=== PATIENT | female | born 1960 | race Caucasian/White ===

== ENCOUNTER → 2016-08-06 | Outpatient (CLI) | payer OTHER, MEDICAID ==
[2016-06-04 19:52] VITALS: BP 114/61
--- NOTE | 2016-08-07 12:06 | MG ---
HISTORY: SCREENING Comparison: Multiple priors dating back to November 10, 2007 FINDINGS: Bilateral CC and MLO projections of the right and left breast were obtained. Heterogeneously dense fibroglandular tissue is seen to be present without significant interval change. No suspicious arch itectural distortion, mass or clustered microcalcifications can be observed to suggest malignancy. No skin thickening or nipple retraction is appreciated. No pathological lymphadenopathy can be rui ntified. Benign-appearing calcifications are noted within the right and left breast. IMPRESSION: NO RADIOGRAPHIC EVIDENCE OF MALIGNANCY. ACR CATEGORY 2 - benign findings. FOLLOW-UP EXAM 1 YEAR. Diagnostic CAD was utilized and reviewed. * 0 (ZERO) - ASSESSMENT INCOMPLETE; ADDITIONAL IMAGING IS NEEDED. * 1/ (ONE) - NEGATIVE. * 2/II (TWO) - BENIGN FINDINGS. * 3/III (THREE) - PROBABLY BENIGN FINDING; SHORT INTERVAL FOLLOW-UP SUGGESTED. * 4/IV (FOUR) - SUSPICIOUS ABNORMALITY; BIOPSY SHOULD BE CONSIDERED. * 5/V (FIVE) - HIGHLY SUSPICIOUS OF MALIGNANCY; BIOPSY SHOULD BE PERFORMED. A NEGATIVE X-RAY REPORT SHOULD NOT DELAY BIOPSY IF A DOMINANT OR CLINICALLY SUSPICIOUS MASS IS PRESENT; 4 TO 8 PERCENT OF CANCERS ARE NOT IDENTIFIED BY X-RAY. A NEG ATIVE REPORT MAY REINFORCE THE CLINICAL IMPRESSION. ADENOSIS AND DENSE BREASTS MAY OBSCURE AN UNDER LYING NEOPLASM. Reported By:
== END ==
LOC: RAD 13:52
PROVIDERS: ATTEND Specialist
DX: Z12.31 Encounter for screening mammogram for malignant neoplasm of breast (principal)
CPT/HCPCS: 77067

== ENCOUNTER 2017-01-14 18:13 | Emergency (ER) | payer OTHER, MEDICAID ==
[2017-01-14 18:22] VITALS: BP 126/61; BMI 30.7
[2017-01-14] MEDS ORDERED: TORADOL 60 MG VIAL IM ONE (20:09)
--- NOTE | 2017-01-14 20:10 | DR.GENAD ---
HPI - PCP Primary Care Physician: SHAYNA ARMSTRONG - Complaint/Symptoms Chief Complaint Doctors Comments: There has been no n/v. Denies headache Chief Complaint:: PT HAD FALL AT HOME AND HURT BOTH FEET AND HIT HEAD ON BED. C /O KNOT ON HEAD - Source History Provided: Family Member - Mode of Arrival Mode of Arrival: Wheelchair - Timing Onset of Chief Complaint: 01/14/17 PMH - PMH Past Medical History: Yes Past Medical History: Depression, Hyperthyroidism Past Surgical History: Yes Surgical History: Cholecystectomy - Family History History of Family Medical Conditions: Yes Family Medical History: Cancer, Coronary Artery Disease, Heart Failure, Hypertension - Social History Does patient currently use any type of tobacco product: No Have you used tobacco products in the last 12 months: No Type of Tobacco Use: None Does any household member use tobacco: No Alcohol Use: None Do you use any recreational Drugs:: No Lives With: Family Lives Where: Home - infectious screening In the last 2 months have you had wt loss of >10#?: NO Have you had fever, night sweats or hemotysis?: No Have you traveled outside the country in the last 6 months?: No Isolation: Standard ROS - Review of Systems Eyes: No Symptoms Reported ENTM: No Symptoms Reported Respiratoy: No Symptoms Reported Cardiovascular: No Symptoms Reported Gastrointestinal/Abdominal: No Symptoms Reported Genitourinary: No Symptoms Reported Neurological: No Symptoms Reported Musculoskeletal: No Symptoms Reported Integumentary: See HPI, Lesions (abrasion on scalp,, right and left feet) Hematologic/Lymphatic: No Symptoms Reported Endocrine: No Symptoms Reported Psychiatric: No Symptoms Reported All Other Systems: Reviewed and Negative PE - Vital Signs Vitals: Temperature 98.3 F Pulse Rate 75 Respiratory Rate 20 Blood Pressure 126/61 O2 Sat by Pulse Oximetry 98 - General Limitations: No Limitations General Appearance: Alert, In No Apparent Distress - Head Head Exam: Normal Inspection, Other (left accipital pariatal area abrasion) - Eyes Eye exam: Normal Appearance, PERRL, EOMI - ENT ENT Exam: Normal Exam External Ear Exam: Normal External Inspection TM/Canal Exam: Bilateral Normal Nose Exam: Normal Nose Exam Mouth Exam: Normal Inspection Throat Exam: Normal Inspection - Neck Neck Exam: Normal Inspection - Chest Chest Inspection: Normal Inspection - Respiratory Respiratory Exam: Normal Lung Sounds Bilat Respiratory Exam: Bilateral Clear to Auscultation - Cardiovascular Cardiovascular Exam: Regular Rate, Normal Rhythm - Abdominal Exam Abdominal Exam: Normal Inspection Abdominal Tenderness: negative: RUQ, RLQ, LUQ, LLQ, Epigastrium, Suprapubic, Diffuse, Mild, Moderate, Severe, Other - Extremities Extremities Exam: Full ROM, Edema (bilateral ankles) - Back Back Exam: Normal Inspection - Neurologic Neurological Exam: Alert, Oriented X3, CN II-XII Intact - Psychiatric Psychiatric Exam: Normal Affect, Normal Mood - Skin Skin Exam: Warm, Dry, Intact (abrasion right foot, and scalp) ROR - XRAY XRAY Interpreted by: Radiologist (Ankle:No acute abnormality, foot: no acute abnormality; Skull: negative) - Diagnosis Discharge Problem: Hematoma and contusion Contusion, foot Qualifiers: Encounter type: initial encounter Laterality: right Qualified Code(s): S90.31XA - Contusion of right foot, initial encounter Contusion of right ankle Qualifiers: Encounter type: initial encounter Qualified Code(s): S90.01XA - Contusion of right ankle, initial encounter - Discharge Plan Condition: Stable - Follow ups/Referrals Follow ups/Referrals: SHAYNA ARMSTRONG [Primary Care Provider] - 3 days - Instructions
[2017-01-14] MEDS ORDERED: TORADOL 60 MG VIAL ONE ×2 (20:32→21:02)
--- NOTE | 2017-01-14 20:50 | RAD ---
HISTORY: Pain and edema post fall Study: Three views right foot Comparison: 06/10/2015 Findings: Normal alignment. No acute fracture or dislocation. The soft tissues are unremarkable. IMPRESSION: 1. No acute osseous abnormality. Reported By:
--- NOTE | 2017-01-14 20:51 | RAD ---
HISTORY: Pain and edema after fall Study: Three views left ankle Comparison: None Findings: Normal alignment. No acute fracture or dislocation. The soft tissues are unremarkable. IMPRESSION: 1. No acute osseous abnormality. Reported By:
--- NOTE | 2017-01-14 20:54 | RAD ---
HISTORY: Fall, closed head injury, hematoma Study: Three views of the skull Comparison: None Findings: The calvarium appears intact. No depressed or displaced fracture is identified. The soft tissues are unremarkable. Paranasal sinuses appear clear. IMPRESSION: 1. Negative skull radiographs. Reported By:
== END 2017-01-14 21:37 | disposition home or self-care (01) ==
LOC: ER 18:26
DX: S90.31XA Contusion of right foot, initial encounter (principal); S90.01XA Contusion of right ankle, initial encounter; W01.198A Fall on same level from slipping, tripping and stumbling with subsequent striking against other object, initial encounter; Y92.009 Unspecified place in unspecified non-institutional (private) residence as the place of occurrence of the external cause
CPT/HCPCS: 70260; 73610; 73630; 96372; 99283; J1885

== ENCOUNTER 2017-08-08 14:33 | Observation (INO) | payer OTHER, MEDICAID ==
[2017-08-08 18:26] VITALS: BMI 30.9
[2017-08-08] MEDS: NS 1000 ML 1,000 ML IV SCH (18:27)
--- NOTE | 2017-08-08 18:31 | RAD ---
HISTORY: Abdominal Pain Study: Frontal view of the chest, flat and upright views of the abdomen Comparison: None. Findings: Cardiomediastinal silhouette is normal in size. No focal consolidations, pleural effusions or pneumot horax. Osseous structures are without acute abnormality. Flat and upright views of the abdomen demonstrates a normal bowel gas pattern. No free air. No abnor mal calcifications or abnormal soft tissue shadows. No acute bony abnormalities. IMPRESSION: 1. No acute cardiopulmonary disease. 2. No evidence for acute abdominal pathology. Reported By:
[2017-08-08 18:41] LABS: BASOPHILS # (AUTO) 0.1 X10^3/uL (0.0-0.1); BASOPHILS % (AUTO) 1.1 % (0.2-1.0); EOSINOPHILS # (AUTO) 0.1 x10^3/uL (0.0-0.2); EOSINOPHILS % (AUTO) 1.6 % (0.9-2.9); HEMATOCRIT 38.9 % (36.0-47.0); HEMOGLOBIN 13.5 g/dL (12.0-16.0); LYMPHOCYTES # (AUTO) 1.8 X10^3/uL (1.3-2.9); LYMPHOCYTES % (AUTO) 28.8 % (21.0-51.0); MEAN CORPUSCULAR HGB CONC 34.6 g/dL (33.0-35.0); MEAN CORPUSCULAR VOLUME 86.5 fL (80.0-100.0); MEAN PLATELET VOLUME 7.4 fL (7.4-11.0); MONOCYTES # (AUTO) 0.6 x10^3/uL (0.3-0.8); MONOCYTES % (AUTO) 9.7 % (0.0-13.0); NEUTROPHILS # (AUTO) 3.7 x10^3/uL (2.2-4.8); NEUTROPHILS % (AUTO) 58.8 % (42.0-75.0); PLATELET COUNT 269 X10^3/uL (150.0-450.0); RED CELL DISTRIBUTION WIDTH 13.2 % (11.6-16.5); WHITE BLOOD COUNT 6.3 X10^3/uL (3.6-10.0)
[2017-08-08 18:51] LABS: ALANINE AMINOTRANSFERASE 23 Units/L (12-78); ALBUMIN 4.1 g/dL (3.4-5.0); ALKALINE PHOSPHATASE 78 Units/L (46-116); ASPARTATE AMINO TRANSFERASE 17 Units/L (15-37); BLOOD UREA NITROGEN 10 mg/dL (7-18); CHLORIDE 104 mmol/L (98-107); CREATININE 0.87 mg/dL (0.55-1.02); SODIUM 140 mmol/L (136-145); TOTAL PROTEIN 7.6 g/dL (6.4-8.2); eGFR BLACK RACES > 60 (>60); eGFR NON BLACK RACES > 60 (>60)
[2017-08-08 18:55] LABS: CALCIUM 9.4 mg/dL (8.5-10.1)
[2017-08-08] MEDS: COLACE CAP 100 MG PO SCH (19:34)
[2017-08-08] MEDS: MILK OF MAGNESIA PO SCH ×2 (19:34→21:33)
[2017-08-08] MEDS: MIRALAX POWDER (1 DOSE 17GM) PO SCH (19:34)
[2017-08-09] MEDS: TYLENOL 325 MG TAB PO PRN ×2 (01:37→09:13)
[2017-08-09] MEDS: NS 1000 ML 1,000 ML IV SCH ×3 (02:53→21:45)
[2017-08-09 06:43] LABS: BASOPHILS % (AUTO) 0.7 % (0.2-1.0); EOSINOPHILS # (AUTO) 0.1 x10^3/uL (0.0-0.2); EOSINOPHILS % (AUTO) 1.9 % (0.9-2.9); HEMATOCRIT 35.4 % (36.0-47.0); HEMOGLOBIN 12.3 g/dL (12.0-16.0); LYMPHOCYTES # (AUTO) 2.2 X10^3/uL (1.3-2.9); LYMPHOCYTES % (AUTO) 36.3 % (21.0-51.0); MEAN CORPUSCULAR HEMOGLOBIN 30.1 pg (27.0-34.0); MEAN CORPUSCULAR HGB CONC 34.7 g/dL (33.0-35.0); MEAN CORPUSCULAR VOLUME 86.6 fL (80.0-100.0); MONOCYTES # (AUTO) 0.6 x10^3/uL (0.3-0.8); MONOCYTES % (AUTO) 10.6 % (0.0-13.0); NEUTROPHILS # (AUTO) 3.1 x10^3/uL (2.2-4.8); NEUTROPHILS % (AUTO) 50.5 % (42.0-75.0); PLATELET COUNT 234 X10^3/uL (150.0-450.0); RED BLOOD COUNT 4.08 X10^6/uL (3.5-5.4); RED CELL DISTRIBUTION WIDTH 13.4 % (11.6-16.5); WHITE BLOOD COUNT 6.1 X10^3/uL (3.6-10.0)
[2017-08-09 07:07] LABS: ALANINE AMINOTRANSFERASE 21 Units/L (12-78); ALBUMIN 3.3 g/dL (3.4-5.0); ALKALINE PHOSPHATASE 71 Units/L (46-116); ASPARTATE AMINO TRANSFERASE 15 Units/L (15-37); BLOOD UREA NITROGEN 11 mg/dL (7-18); CALCIUM 8.1 mg/dL (8.5-10.1); CARBON DIOXIDE 24.8 mmol/L (21-32); CHLORIDE 108 mmol/L (98-107); COR CA(FOR HYPOALB) 8.7 mg/dL (8.5-10.1); CREATININE 0.79 mg/dL (0.55-1.02); SODIUM 143 mmol/L (136-145); TOTAL PROTEIN 6.3 g/dL (6.4-8.2); eGFR BLACK RACES > 60 (>60); eGFR NON BLACK RACES > 60 (>60)
[2017-08-09] MEDS: MILK OF MAGNESIA PO SCH ×3 (09:11→18:03)
[2017-08-09] MEDS: MIRALAX POWDER (1 DOSE 17GM) PO SCH (09:13)
[2017-08-09] MEDS: COLACE CAP 100 MG PO SCH (09:13)
[2017-08-09] MEDS: NexIUM PO SCH (12:30)
[2017-08-09] MEDS: PROVERA PO SCH (12:30)
[2017-08-09] MEDS: ESTRACE PO SCH (12:30)
[2017-08-09] MEDS ORDERED: SYNTHROID 25 mcg TAB PO SCH (16:30)
--- NOTE | 2017-08-09 17:49 | DR.UPDATE ---
H&P Update History and Physical Update: WAS SEEN IN THE OFFICE ON 08/08/2017. A H&P WAS COMPLETED PRIOR TO ADMISSION. PATIENT HAS BEEN SEEN AND EXAMINED WITH NO CHANGES NOTED TO H&P. . Changes noted: NO Yes with the following:
[2017-08-09] MEDS ORDERED: BUTT CREAM (COMPOUND) TOP PRN (18:18)
--- NOTE | 2017-08-09 20:53 | PCM.PROG ---
Progress Note - Progress Note for Day of Date: 08/09/17 - Subjective Subjective: IS BEING TREATED FOR FECAL IMPACTION. TODAY, SHE IS ALERT AND ORIENTED, LYING IN BED ON MORNING ROUNDS. SHE CONTINUES WITH ABDOMINAL DISTENTION AND DIFFUSE TENDERNESS. HER VITALS THIS MORNING ARE 97.9-67-20-95%- 121/63. SHE REMAINS HEMODYNAMICALLY STABLE TODAY. ABDOMINAL XRAY REVEALS NO EVIDENCE FOR ACUTE ABDOMINAL PATHOLOGY. SHE IS CURRENTLY RECEIVING MILK OF MAGNESIA, MIRALAX, AND COLACE. SHE REPORTS SEVERAL BOWEL MOVEMENTS THROUGHOUT THE NIGHT. WE WILL CONTINUE WITH CURRENT PLAN OF CARE TODAY. WE PLAN FOR DISCHARGE TOMORROW IF PATIENT REMAINS STABLE. - Past Medical Family Social History Past Med/Fam/Surg Hx: No changes since H&P Allergies: Allergies codeine Allergy (Verified 08/08/17 18:52) - Review of Systems ROS: No change since H&P - Vital Signs and I&O's Vital Signs: Temperature 98.1 F Pulse Rate [Right Brachial] 77 Respiratory Rate 18 Blood Pressure [Right Arm] 125/65 Blood Pressure 126/61 O2 Sat by Pulse Oximetry 97 Intake and Output: Intake & Output 08/07/17 08/08/17 08/09/17 08/10/17 11:59 11:59 11:59 11:59 Intake Total 1980 720 Balance 1980 720 - Physical Exam Oriented: Normal Eyes: Normal Ear: Normal Nose: Normal Throat: Normal Respiratory: Normal Cardiovascular: Normal : Normal Auscultation: Bowel Sounds: Normal Palpation: Normal Tenderness: Diffuse, Moderate. negative: Rebound, Guarding, Rigidity Skin: Normal Musculoskeletal: Normal Psychiatric: Normal Mood Description: Calm Affect: Normal Speech Pattern: Clear, Appropriate - Laboratory and Diagnostics Result Diagrams: 08/09/17 05:14 08/09/17 05:14 Labs: Laboratory WBC 6.1 X10^3/uL (3.6-10.0) 08/09/17 05:14 RBC 4.08 X10^6/uL (3.5-5.4) 08/09/17 05:14 Hgb 12.3 g/dL (12.0-16.0) 08/09/17 05:14 Hct 35.4 % (36.0-47.0) L 08/09/17 05:14 MCV 86.6 fL (80.0-100.0) 08/09/17 05:14 MCH 30.1 pg (27.0-34.0) 08/09/17 05:14 MCHC 34.7 g/dL (33.0-35.0) 08/09/17 05:14 RDW 13.4 % (11.6-16.5) 08/09/17 05:14 Plt Count 234 X10^3/uL (150.0-450.0) 08/09/17 05:14 MPV 8.0 fL (7.4-11.0) 08/09/17 05:14 Neut % (Auto) 50.5 % (42.0-75.0) 08/09/17 05:14 Lymph % (Auto) 36.3 % (21.0-51.0) 08/09/17 05:14 [place] % (Auto) 10.6 % (0.0-13.0) 08/09/17 05:14 Eos % (Auto) 1.9 % (0.9-2.9) 08/09/17 05:14 Baso % (Auto) 0.7 % (0.2-1.0) 08/09/17 05:14 Neut # (Auto) 3.1 x10^3/uL (2.2-4.8) 08/09/17 05:14 Lymph # (Auto) 2.2 X10^3/uL (1.3-2.9) 08/09/17 05:14 [place] # (Auto) 0.6 x10^3/uL (0.3-0.8) 08/09/17 05:14 Eos # (Auto) 0.1 x10^3/uL (0.0-0.2) 08/09/17 05:14 Baso # (Auto) 0.0 X10^3/uL (0.0-0.1) 08/09/17 05:14 Absolute Nucleated RBC 0.1 /100WBC 08/09/17 05:14 Sodium 143 mmol/L (136-145) 08/09/17 05:14 Corrected Sodium TNP 08/09/17 05:14 Potassium 3.8 mmol/L (3.5-5.1) 08/09/17 05:14 Chloride 108 mmol/L (98-107) H 08/09/17 05:14 Carbon Dioxide 24.8 mmol/L (21-32) 08/09/17 05:14 BUN 11 mg/dL (7-18) 08/09/17 05:14 Creatinine 0.79 mg/dL (0.55-1.02) 08/09/17 05:14 Est GFR (MDRD) Af Amer > 60 (>60) 08/09/17 05:14 Est GFR (MDRD) Non-Af > 60 (>60) 08/09/17 05:14 Glucose 88 mg/dL (65-99) 08/09/17 05:14 Calcium 8.1 mg/dL (8.5-10.1) L 08/09/17 05:14 Corrected Calcium 8.7 mg/dL (8.5-10.1) 08/09/17 05:14 Total Bilirubin 0.30 mg/dL (0.2-1.0) 08/09/17 05:14 AST 15 Units/L (15-37) 08/09/17 05:14 ALT 21 Units/L (12-78) 08/09/17 05:14 Alkaline Phosphatase 71 Units/L (46-116) 08/09/17 05:14 Total Protein 6.3 g/dL (6.4-8.2) L 08/09/17 05:14 Albumin 3.3 g/dL (3.4-5.0) L 08/09/17 05:14 Globulin 3.0 g/dL (2.5-4.5) 08/09/17 05:14 Albumin/Globulin Ratio 1.1 Ratio (1.1-2.1) 08/09/17 05:14 - Plan (1) Fecal impaction Status: Acute Plan: CONTINUE MILD OF MAGNESIA, CONTINUE COLACE, CONTINUE MIRALAX, CONTINUE TO MONITOR
[2017-08-09] MEDS ORDERED: KLONOPIN TAB 0.5 MG PO SCH (21:00)
[2017-08-09] MEDS ORDERED: BENADRYL CAP/TAB 25 MG PO ONE (22:36)
[2017-08-10] MEDS: MILK OF MAGNESIA PO SCH ×2 (00:04→10:01)
[2017-08-10] MEDS: NS 1000 ML 1,000 ML IV SCH ×2 (02:19→10:31)
[2017-08-10 05:24] LABS: BASOPHILS # (AUTO) 0.1 X10^3/uL (0.0-0.1); BASOPHILS % (AUTO) 0.7 % (0.2-1.0); EOSINOPHILS # (AUTO) 0.2 x10^3/uL (0.0-0.2); EOSINOPHILS % (AUTO) 2.1 % (0.9-2.9); HEMATOCRIT 36.1 % (36.0-47.0); HEMOGLOBIN 12.2 g/dL (12.0-16.0); LYMPHOCYTES # (AUTO) 2.3 X10^3/uL (1.3-2.9); LYMPHOCYTES % (AUTO) 30.1 % (21.0-51.0); MEAN CORPUSCULAR HGB CONC 33.9 g/dL (33.0-35.0); MEAN CORPUSCULAR VOLUME 88.3 fL (80.0-100.0); MEAN PLATELET VOLUME 7.6 fL (7.4-11.0); MONOCYTES # (AUTO) 0.7 x10^3/uL (0.3-0.8); MONOCYTES % (AUTO) 8.8 % (0.0-13.0); NEUTROPHILS # (AUTO) 4.5 x10^3/uL (2.2-4.8); NEUTROPHILS % (AUTO) 58.3 % (42.0-75.0); PLATELET COUNT 234 X10^3/uL (150.0-450.0); RED BLOOD COUNT 4.09 X10^6/uL (3.5-5.4); RED CELL DISTRIBUTION WIDTH 13.1 % (11.6-16.5); WHITE BLOOD COUNT 7.8 X10^3/uL (3.6-10.0)
[2017-08-10 05:41] LABS: ALANINE AMINOTRANSFERASE 18 Units/L (12-78); ALBUMIN 3.1 g/dL (3.4-5.0); ALKALINE PHOSPHATASE 73 Units/L (46-116); ASPARTATE AMINO TRANSFERASE 16 Units/L (15-37); BLOOD UREA NITROGEN 12 mg/dL (7-18); CARBON DIOXIDE 22.6 mmol/L (21-32); CHLORIDE 111 mmol/L (98-107); COR CA(FOR HYPOALB) 8.7 mg/dL (8.5-10.1); CREATININE 0.74 mg/dL (0.55-1.02); SODIUM 142 mmol/L (136-145); eGFR BLACK RACES > 60 (>60); eGFR NON BLACK RACES > 60 (>60)
[2017-08-10] MEDS ORDERED: ZOLOFT PO SCH (09:00)
[2017-08-10] MEDS ORDERED: SERTRALINE HCL 50 MG PO SCH (09:00)
[2017-08-10] MEDS: COLACE CAP 100 MG PO SCH (10:01)
[2017-08-10] MEDS: NexIUM PO SCH (10:01)
[2017-08-10] MEDS: MIRALAX POWDER (1 DOSE 17GM) PO SCH (10:01)
[2017-08-10] MEDS: ESTRACE PO SCH (10:01)
[2017-08-10] MEDS: PROVERA PO SCH (10:02)
[2017-08-10 12:28] VITALS: BP 132/77
--- NOTE | 2017-08-10 12:33 | RAD ---
Examination: KUB History: Abdominal pain, cerebral palsy Comparison reference 08/08/2017 Findings: The intestinal gas pattern is normal. The extreme inferior pelvic cavity is not included. S urgical clips right upper quadrant. No abdominal mass or pathologic calcification or evidence for asc ites. Impression: No acute abnormality identified Reported By:
== END 2017-08-10 13:20 | disposition home or self-care (01) ==
LOC: MED/SURG 14:33
PROVIDERS: ADMIT Internal Medicine; ATTEND Internal Medicine
DX: K56.41 Fecal impaction (principal); K59.09 Other constipation; R10.84 Generalized abdominal pain; R11.0 Nausea; E03.8 Other specified hypothyroidism; K21.0 Gastro-esophageal reflux disease with esophagitis; F41.8 Other specified anxiety disorders
CPT/HCPCS: 36415; 74018; 74022; 80053; 85025; 99217; A4216; A4222; G0378

== ENCOUNTER 2017-11-06 10:51 | Observation (INO) ==
[2017-11-06] MEDS ORDERED: ZOFRAN INJ 4 MG VIAL IVP PRN (14:39)
[2017-11-06] MEDS ORDERED: MIRALAX POWDER (255 GRAMS BTL) PO NR (15:07)
[2017-11-06] MEDS ORDERED: DULCOLAX TAB EC 5 MG PO SCH ×2 (15:08→21:00)
[2017-11-06 15:16] LABS: BASOPHILS # (AUTO) 0.1 X10^3/uL (0.0-0.1); BASOPHILS % (AUTO) 1.1 % (0.2-1.0); EOSINOPHILS # (AUTO) 0.1 x10^3/uL (0.0-0.2); EOSINOPHILS % (AUTO) 0.8 % (0.9-2.9); HEMATOCRIT 39.7 % (36.0-47.0); HEMOGLOBIN 13.5 g/dL (12.0-16.0); LYMPHOCYTES # (AUTO) 1.2 X10^3/uL (1.3-2.9); MEAN CORPUSCULAR HEMOGLOBIN 29.9 pg (27.0-34.0); MEAN CORPUSCULAR VOLUME 87.9 fL (80.0-100.0); MONOCYTES # (AUTO) 0.6 x10^3/uL (0.3-0.8); MONOCYTES % (AUTO) 8.9 % (0.0-13.0); NEUTROPHILS # (AUTO) 4.3 x10^3/uL (2.2-4.8); NEUTROPHILS % (AUTO) 69.2 % (42.0-75.0); PLATELET COUNT 231 X10^3/uL (150.0-450.0); RED BLOOD COUNT 4.51 X10^6/uL (3.5-5.4); RED CELL DISTRIBUTION WIDTH 13.1 % (11.6-16.5); WHITE BLOOD COUNT 6.2 X10^3/uL (3.6-10.0)
[2017-11-06 15:27] VITALS: BMI 28.0
[2017-11-06 15:36] LABS: ALANINE AMINOTRANSFERASE 23 Units/L (12-78); ALBUMIN 3.9 g/dL (3.4-5.0); ALKALINE PHOSPHATASE 60 Units/L (46-116); ASPARTATE AMINO TRANSFERASE 16 Units/L (15-37); BLOOD UREA NITROGEN 6 mg/dL (7-18); CARBON DIOXIDE 30.7 mmol/L (21-32); CHLORIDE 105 mmol/L (98-107); CREATININE 0.76 mg/dL (0.55-1.02); SODIUM 139 mmol/L (136-145); TOTAL PROTEIN 7.2 g/dL (6.4-8.2); eGFR NON BLACK RACES > 60 (>60)
[2017-11-06] MEDS: NS 1000 ML 1,000 ML IV SCH (16:44)
[2017-11-06] MEDS ORDERED: NULYTELY or GO-LYTELY PO SCH (17:00)
[2017-11-07] MEDS: NS 1000 ML 1,000 ML IV SCH ×2 (04:39→16:10)
[2017-11-07 06:38] LABS: BASOPHILS # (AUTO) 0.1 X10^3/uL (0.0-0.1); BASOPHILS % (AUTO) 0.9 % (0.2-1.0); EOSINOPHILS # (AUTO) 0.1 x10^3/uL (0.0-0.2); EOSINOPHILS % (AUTO) 1.1 % (0.9-2.9); HEMATOCRIT 41.6 % (36.0-47.0); HEMOGLOBIN 14.1 g/dL (12.0-16.0); LYMPHOCYTES % (AUTO) 26.4 % (21.0-51.0); MEAN CORPUSCULAR HEMOGLOBIN 29.9 pg (27.0-34.0); MEAN CORPUSCULAR VOLUME 88.1 fL (80.0-100.0); MEAN PLATELET VOLUME 8.2 fL (7.4-11.0); MONOCYTES # (AUTO) 0.7 x10^3/uL (0.3-0.8); MONOCYTES % (AUTO) 9.6 % (0.0-13.0); NEUTROPHILS # (AUTO) 4.6 x10^3/uL (2.2-4.8); PLATELET COUNT 260 X10^3/uL (150.0-450.0); RED BLOOD COUNT 4.73 X10^6/uL (3.5-5.4); RED CELL DISTRIBUTION WIDTH 13.2 % (11.6-16.5); WHITE BLOOD COUNT 7.5 X10^3/uL (3.6-10.0)
[2017-11-07 07:05] LABS: ALANINE AMINOTRANSFERASE 22 Units/L (12-78); ALKALINE PHOSPHATASE 69 Units/L (46-116); ASPARTATE AMINO TRANSFERASE 17 Units/L (15-37); BLOOD UREA NITROGEN 7 mg/dL (7-18); CALCIUM 9.1 mg/dL (8.5-10.1); CARBON DIOXIDE 26.8 mmol/L (21-32); CHLORIDE 108 mmol/L (98-107); CREATININE 0.81 mg/dL (0.55-1.02); SODIUM 142 mmol/L (136-145); TOTAL PROTEIN 7.5 g/dL (6.4-8.2); eGFR NON BLACK RACES > 60 (>60)
[2017-11-07] MEDS ORDERED: DIPRIVAN VIAL 20 ML ONE (11:54)
[2017-11-07] MEDS ORDERED: DIPRIVAN VIAL 10 ML ONE (12:09)
--- NOTE | 2017-11-07 12:23 | DR.H&P ---
H&P - History & Physical for Day of: H&P Date: 11/06/17 - Chief Complaint Chief Complaint: N/V/ABDOMINAL PAIN - History of Present Illness History of Present Illness: IS A 57 YEAR OLD PATIENT OF OURS WHO PRESENTED TO THE OFFICE WITH COMPLAINTS OF NAUSEA, VOMITING, ABDOMINAL PAIN, AND GENERALIZED WEAKNESS. PATIENTS FAMILY MEMBER REPORTS THAT SHE IS SCHEDULED FOR A COLONOSCOPY TOMORROW, HOWEVER, DOES NOT FEEL THAT SHE CAN CARE FOR PATIENT AT HOME TODAY DUE TO INCREASED WEAKNESS AND NAUSEA/VOMITING. WE PLANNED TO ADMIT PATIENT FOR FURTHER EVALUATION AND TREATMENT. ON ADMISSION, VITALS WERE 98.3-67-18-95%-102/58. LABS WERE OBTAINED. SHE IS HEMODYNAMICALLY STABLE. WE STARTED HER ON NORMAL SALINE AT 30ML/HR WELL ZOFRAN 4MG IV Q4H PRN PAIN. SHE IS SCHEDULED FOR A COLONOSCOPY IN THE MORNING. THIS AFTERNOON, WE WILL BEGIN A BOWEL PREP. OTHERWISE, WE WILL FOLLOW UP WITH AM LABS AND CONTINUE TO MONITOR PATIENT. - Past Medical History Past Medical History: Anxiety, Depression, Hyperthyroidism - Past Surgical History Surgical History: Cholecystectomy - Family History Family Medical History: Diabetes Mellitus, Cancer, Coronary Artery Disease, Heart Failure, Sudden Cardiac , Hypertension - Social History Does patient currently use any type of tobacco product: No Have you used tobacco products in the last 12 months: No Type of Tobacco Use: None Does any household member use tobacco: No Alcohol Use: None Drug Use: None - Medications Home Medications: codeine Allergy (Verified 08/08/17 18:52) CONTINUE taking the following medications cefdinir 1 cap PO BID 11/06/17 [History] citalopram 1 tab PO DAILY 11/06/17 [History] docusate sodium 1 cap PO BID 11/06/17 [History] fluticasone 1 spray INTRANASAL BID 11/06/17 [History] ketoconazole 2 % TOPICAL BID 11/06/17 [History] levocetirizine 1 tab PO HS 11/06/17 [History] lubiprostone [Amitiza] 1 cap PO BID 11/06/17 [History] ondansetron 1 tab PO QID PRN 11/06/17 [History] polyethylene glycol 3350 17 g PO DAILY 11/06/17 [History] ranitidine HCl 1 tab PO HS 11/06/17 [History] - Review of Systems Constitutional: Weakness Eyes: No Symptoms Reported ENT: No Symptoms Reported Respiratory: No Symptoms Reported Cardiovascular: No Symptoms Reported Gastrointestinal: Nausea, Vomiting, Abdominal Pain Genitourinary: No Symptoms Reported Musculoskeletal: No Symptoms Reported Skin: No Symptoms Reported Neurological: Weakness - Physical Exam Vital Signs: Temperature 97.7 F Pulse Rate [Right Brachial] 77 Respiratory Rate 18 Blood Pressure [Right Arm] 125/71 Blood Pressure 132/77 O2 Sat by Pulse Oximetry 96 Oriented: Normal Eyes: Normal Ear: Normal Nose: Normal Throat: Normal Respiratory: Clear Throughout Cardiovascular: Normal. negative: S3, S4, Murmur : Normal Auscultation: Bowel Sounds: Normal Palpation: Normal Tenderness: Diffuse, Mild Skin: Normal Musculoskeletal: Normal Psychiatric: Normal Mood Description: Calm Affect: Normal Speech Pattern: Clear - Assessment/Plan (1) Abdominal pain Qualifiers: Abdominal location: generalized Qualified Code(s): R10.84 - Generalized abdominal pain Status: Acute Plan: ADMIT, EGD IN AM, CONTINUE TO MONITOR (2) Nausea & vomiting Qualifiers: Vomiting type: unspecified Vomiting Intractability: non-intractable Qualified Code(s): R11.2 - Nausea with vomiting, unspecified Status: Acute Plan: ZOFRAN 4MG IV Q4H PRN NAUSEA, CONTINUE TO MONITOR - Allergies Allergies/Adverse Reactions: Allergies Allergy/AdvReac Type Severity Reaction Status Date / Time codeine Allergy Verified 08/08/17 18:52
[2017-11-07] MEDS ORDERED: TYLENOL 325 MG TAB PO PRN (16:27)
[2017-11-07] MEDS ORDERED: K-LYTE EFFERVESCENT PO PRN (18:57)
[2017-11-07] MEDS ORDERED: POTASSIUM CHLORIDE LIQ 20 MEQ UDC PO PRN (18:57)
[2017-11-07] MEDS ORDERED: MAGNESIUM SULFATE 1 GRAM/100 mL PREMIX 1 GM/100 ML BAG IV PRN (18:57)
[2017-11-07] MEDS ORDERED: POTASSIUM CHL 40 MEQ/NS 0.45% 500 ML IV PRN (18:57)
[2017-11-07] MEDS ORDERED: K-RIDER 10 MEQ/NS 100 ML 10 MEQ/100 ML BAG IV PRN (18:57)
[2017-11-07] MEDS ORDERED: POTASSIUM CHL 60 MEQ/NS 0.45% 500 ML IV PRN (18:57)
[2017-11-07] MEDS ORDERED: RESTORIL CAP 15 MG PO PRN (21:06)
[2017-11-08 04:56] LABS: BILIRUBIN,URINE NEGATIVE (NEGATIVE); BLOOD/HEMOGLOBIN,URINE 1+ (NEGATIVE); GLUCOSE, URINE NEGATIVE (NEGATIVE); KETONES,URINE NEGATIVE (NEGATIVE); LEUKOCYTE ESTERASE ,URINE NEGATIVE (NEGATIVE); NITRITES,URINE NEGATIVE (NEGATIVE); PROTEIN,URINE NEGATIVE (NEGATIVE); UROBILINOGEN,URINE NORMAL (NORMAL)
[2017-11-08 05:00] LABS: APPEARANCE,URINE CLEAR (CLEAR); BACTERIA,URINE NEGATIVE /HPF (NEGATIVE); COLOR,URINE PALE YELLOW (YELLOW); RBC,URINE 0-2 /HPF (NONE SEEN); SQUAMOUS EPITHELIAL CELL,UR RARE /HPF (NEGATIVE)
[2017-11-08 05:22] LABS: BASOPHILS % (AUTO) 0.4 % (0.2-1.0); EOSINOPHILS # (AUTO) 0.1 x10^3/uL (0.0-0.2); EOSINOPHILS % (AUTO) 1.3 % (0.9-2.9); HEMATOCRIT 36.8 % (36.0-47.0); HEMOGLOBIN 12.4 g/dL (12.0-16.0); LYMPHOCYTES # (AUTO) 1.9 X10^3/uL (1.3-2.9); LYMPHOCYTES % (AUTO) 25.1 % (21.0-51.0); MEAN CORPUSCULAR HEMOGLOBIN 29.4 pg (27.0-34.0); MEAN CORPUSCULAR HGB CONC 33.7 g/dL (33.0-35.0); MEAN CORPUSCULAR VOLUME 87.3 fL (80.0-100.0); MEAN PLATELET VOLUME 8.6 fL (7.4-11.0); MONOCYTES # (AUTO) 0.8 x10^3/uL (0.3-0.8); MONOCYTES % (AUTO) 10.3 % (0.0-13.0); NEUTROPHILS # (AUTO) 4.8 x10^3/uL (2.2-4.8); NEUTROPHILS % (AUTO) 62.9 % (42.0-75.0); PLATELET COUNT 225 X10^3/uL (150.0-450.0); RED BLOOD COUNT 4.21 X10^6/uL (3.5-5.4); RED CELL DISTRIBUTION WIDTH 12.9 % (11.6-16.5); WHITE BLOOD COUNT 7.6 X10^3/uL (3.6-10.0)
[2017-11-08 05:36] LABS: ALANINE AMINOTRANSFERASE 19 Units/L (12-78); ALBUMIN 3.2 g/dL (3.4-5.0); ALKALINE PHOSPHATASE 59 Units/L (46-116); ASPARTATE AMINO TRANSFERASE 13 Units/L (15-37); BLOOD UREA NITROGEN 6 mg/dL (7-18); CALCIUM 8.4 mg/dL (8.5-10.1); CARBON DIOXIDE 27.2 mmol/L (21-32); CHLORIDE 110 mmol/L (98-107); CREATININE 0.66 mg/dL (0.55-1.02); SODIUM 143 mmol/L (136-145); TOTAL PROTEIN 6.1 g/dL (6.4-8.2); eGFR NON BLACK RACES > 60 (>60)
[2017-11-08] MEDS: NS 1000 ML 1,000 ML IV SCH (07:16)
[2017-11-08 07:57] VITALS: BP 101/60
--- NOTE | 2017-12-15 14:27 | PCM.PROG ---
Progress Note - Progress Note for Day of Date of Exam: 11/07/17 - Subjective Subjective: WAS ADMITTED FOR GENERALIZED WEAKNESS, ABDOMINAL PAIN, AND NAUSEA/VOMITING. SHE CONTINUES WITH GENERALIZED WEAKNESS AND ABDOMINAL PAIN TODAY. SHE IS SCHEDULED FOR A COLONOSCOPY THIS MORNING. BOWEL PREP WAS PERFORMED LAST NIGHT. HER VITALS THIS MORNING ARE 97.7-77-18-96%-125/71. LABS WERE OBTAINED. OTHER THAN POTASSIUM OF 3.4, SHE IS HEMODYNAMICALLY STABLE TODAY. WILL TAKE PATIENNT TO THE OR TODAY FOR COLONOSCOPY. OTHERWISE, WE WILL CONTINUE WITH IV FLUIDS, NAUSEA MEDICATIONS, AND CURRENT PLAN OF CARE. WE PLAN TO FOLLOW UP WITH AM LABS AND CONTINUE TO MONITOR PATIENT. - Past Medical Family Social History Past Med/Fam/Surg Hx: No changes since H&P Allergies: Allergies codeine Allergy (Verified 08/08/17 18:52) - Review of Systems ROS: No change since H&P - Vital Signs and I&O's Vital Signs: Temperature 97.6 F Pulse Rate [Left Brachial] 72 Pulse Rate [Right Brachial] 81 Respiratory Rate 18 Blood Pressure [Right Arm] 101/60 Blood Pressure 132/77 O2 Sat by Pulse Oximetry 96 - Physical Exam Oriented: Normal Eyes: Normal Ear: Normal Nose: Normal Throat: Normal Respiratory: Normal Cardiovascular: Normal. negative: S3, S4, Murmur : Normal Auscultation: Bowel Sounds: Normal Palpation: Normal Tenderness: Diffuse, Mild Skin: Normal Musculoskeletal: Normal Psychiatric: Normal Mood Description: Calm Affect: Normal Speech Pattern: Clear, Appropriate - Laboratory and Diagnostics Result Diagrams: 11/08/17 04:05 11/08/17 04:05 Labs: 11/08/17 04:15 Urine,Clean Catch Urine Culture - Final Laboratory WBC 7.6 X10^3/uL (3.6-10.0) 11/08/17 04:05 RBC 4.21 X10^6/uL (3.5-5.4) 11/08/17 04:05 Hgb 12.4 g/dL (12.0-16.0) 11/08/17 04:05 Hct 36.8 % (36.0-47.0) 11/08/17 04:05 MCV 87.3 fL (80.0-100.0) 11/08/17 04:05 MCH 29.4 pg (27.0-34.0) 11/08/17 04:05 MCHC 33.7 g/dL (33.0-35.0) 11/08/17 04:05 RDW 12.9 % (11.6-16.5) 11/08/17 04:05 Plt Count 225 X10^3/uL (150.0-450.0) 11/08/17 04:05 MPV 8.6 fL (7.4-11.0) 11/08/17 04:05 Neut % (Auto) 62.9 % (42.0-75.0) 11/08/17 04:05 Lymph % (Auto) 25.1 % (21.0-51.0) 11/08/17 04:05 [place] % (Auto) 10.3 % (0.0-13.0) 11/08/17 04:05 Eos % (Auto) 1.3 % (0.9-2.9) 11/08/17 04:05 Baso % (Auto) 0.4 % (0.2-1.0) 11/08/17 04:05 Neut # (Auto) 4.8 x10^3/uL (2.2-4.8) 11/08/17 04:05 Lymph # (Auto) 1.9 X10^3/uL (1.3-2.9) 11/08/17 04:05 [place] # (Auto) 0.8 x10^3/uL (0.3-0.8) 11/08/17 04:05 Eos # (Auto) 0.1 x10^3/uL (0.0-0.2) 11/08/17 04:05 Baso # (Auto) 0.0 X10^3/uL (0.0-0.1) 11/08/17 04:05 Absolute Nucleated RBC 0.0 /100WBC 11/08/17 04:05 Sodium 143 mmol/L (136-145) 11/08/17 04:05 Corrected Sodium TNP 11/08/17 04:05 Potassium 3.9 mmol/L (3.5-5.1) 11/08/17 04:05 Chloride 110 mmol/L (98-107) H 11/08/17 04:05 Carbon Dioxide 27.2 mmol/L (21-32) 11/08/17 04:05 BUN 6 mg/dL (7-18) L 11/08/17 04:05 Creatinine 0.66 mg/dL (0.55-1.02) 11/08/17 04:05 Est GFR (MDRD) Af Amer > 60 (>60) 11/08/17 04:05 Est GFR (MDRD) Non-Af > 60 (>60) 11/08/17 04:05 Glucose 98 mg/dL (65-99) 11/08/17 04:05 Calcium 8.4 mg/dL (8.5-10.1) L 11/08/17 04:05 Corrected Calcium 9.0 mg/dL (8.5-10.1) 11/08/17 04:05 Magnesium 1.9 mg/dL (1.7-2.9) 11/07/17 19:09 Total Bilirubin 0.30 mg/dL (0.2-1.0) 11/08/17 04:05 AST 13 Units/L (15-37) L 11/08/17 04:05 ALT 19 Units/L (12-78) 11/08/17 04:05 Alkaline Phosphatase 59 Units/L (46-116) 11/08/17 04:05 Total Protein 6.1 g/dL (6.4-8.2) L 11/08/17 04:05 Albumin 3.2 g/dL (3.4-5.0) L 11/08/17 04:05 Globulin 2.9 g/dL (2.5-4.5) 11/08/17 04:05 Albumin/Globulin Ratio 1.1 Ratio (1.1-2.1) 11/08/17 04:05 Specimen Type Catherized urine 11/08/17 04:15 Urine Color Pale yellow (YELLOW) 11/08/17 04:15 Urine Appearance Clear (CLEAR) 11/08/17 04:15 Urine pH 7.0 (5.0 - 8.0) 11/08/17 04:15 Ur Specific [place] 1.005 (1.000-1.030) 11/08/17 04:15 Urine Protein Negative (NEGATIVE) 11/08/17 04:15 Urine Glucose (UA) Negative (NEGATIVE) 11/08/17 04:15 Urine Ketones Negative (NEGATIVE) 11/08/17 04:15 Urine Occult Blood 1+ (NEGATIVE) 11/08/17 04:15 Urine Nitrite Negative (NEGATIVE) 11/08/17 04:15 Urine Bilirubin Negative (NEGATIVE) 11/08/17 04:15 Urine Urobilinogen Normal (NORMAL) 11/08/17 04:15 Ur Leukocyte Esterase Negative (NEGATIVE) 11/08/17 04:15 Urine RBC 0-2 /HPF (NONE SEEN) 11/08/17 04:15 Urine WBC None seen /HPF (NONE SEEN) 11/08/17 04:15 Ur Squamous Epith Cells Rare /HPF (NEGATIVE) 11/08/17 04:15 Urine Bacteria Negative /HPF (NEGATIVE) 11/08/17 04:15 Ur Culture Indicated? No/not indicated 11/08/17 04:15 - Plan (1) Abdominal pain Status: Acute Qualifiers: Abdominal location: generalized Qualified Code(s): R10.84 - Generalized abdominal pain Plan: ADMIT, COLONOSCOPY TODAY, CONTINUE TO MONITOR (2) Nausea & vomiting Status: Acute Qualifiers: Vomiting type: unspecified Vomiting Intractability: non-intractable Qualified Code(s): R11.2 - Nausea with vomiting, unspecified Plan: ZOFRAN 4MG IV Q4H PRN NAUSEA, CONTINUE TO MONITOR
--- NOTE | 2017-12-22 18:29 | DR.CARTERD ---
- Discharge Summary for: Discharge Summary for Date of:: 11/08/17 - Admission Date Date of Admission: 11/06/17 - Admission Diagnoses Admission Diagnosis: (1) Abdominal pain (2) Nausea & vomiting - Discharge Date Discharge Date: 11/08/17 - Discharge Diagnoses Discharge Diagnosis: (1) Abdominal pain (2) Nausea & vomiting - Hospital Course Hospital Course: DAY ONE, IS A 57 YEAR OLD PATIENT OF OURS WHO PRESENTED TO THE OFFICE WITH COMPLAINTS OF NAUSEA, VOMITING, ABDOMINAL PAIN, AND GENERALIZED WEAKNESS. PATIENTS FAMILY MEMBER REPORTED THAT SHE WAS SCHEDULED FOR A COLONOSCOPY THE NEXT DAY, HOWEVER, DID NOT FEEL THAT SHE COULD CARE FOR PATIENT AT HOME DUE TO INCREASED WEAKNESS AND NAUSEA/VOMITING. WE ADMITTED PATIENT FOR FURTHER EVALUATION AND TREATMENT. ON ADMISSION, VITALS WERE 98.3-67-18-95%-102/58. LABS WERE WNL. WE STARTED HER ON NORMAL SALINE AT 30ML/HR WELL ZOFRAN 4MG IV Q4H PRN PAIN. SHE WAS SCHEDULED FOR A COLONOSCOPY THE NEXT DAY. WE BEGAN A BOWEL PREP AND CONTINUED TO MONITOR PATIENT. DAY TWO, WAS ADMITTED FOR GENERALIZED WEAKNESS, ABDOMINAL PAIN, AND NAUSEA/VOMITING. SHE CONTINUED WITH GENERALIZED WEAKNESS AND ABDOMINAL PAIN. SHE WAS SCHEDULED FOR A COLONOSCOPY THIS DAY. BOWEL PREP WAS PERFORMED THE NIGHT BEFORE. HER VITALS WERE 97.7-77-18-96%-125/71. LABS WERE OBTAINED. OTHER THAN POTASSIUM OF 3.4, LABS WNL. DR. SOLIS REPORTED FINDINGS OF: SUBOPTIMAL COLON PREP, VISUALIZED PORTION HOWEVER APPEARS TO BE NORMAL; INTERNAL HEMORRHOIDS. WE CONTINUED WITH IV FLUIDS AND NAUSEA MEDICATIONS. DAY THREE, PATIENT REPORTED SHE WAS FEELING BETTER. SHE DENIED ABDOMINAL PAIN OR NAUSEA/VOMITING. APPETITE WAS IMPROVING. VITAL SIGNS STABLE. LABS WNL. WE PLANNED FOR DISCHARGE. INSTRUCTIONS FOR MEDICATIONS AND FOLLOW UP WERE DISCUSSED WITH PATIENT AND FAMILY, BOTH VOICED UNDERSTANDING. PATIENT DISCHARGED HOME IN STABLE CONDITION WITH FAMILY. - Discharge Medications Discharge Medications: Home Medication List cefdinir 1 cap PO BID 11/06/17 [History] citalopram 1 tab PO DAILY 11/06/17 [History] docusate sodium 1 cap PO BID 11/06/17 [History] fluticasone 1 spray INTRANASAL BID 11/06/17 [History] ketoconazole 2 % TOPICAL BID 11/06/17 [History] levocetirizine 1 tab PO HS 11/06/17 [History] lubiprostone 1 cap PO BID 11/06/17 [History] ondansetron 1 tab PO QID PRN 11/06/17 [History] polyethylene glycol 3350 17 g PO DAILY 11/06/17 [History] ranitidine HCl 1 tab PO HS 11/06/17 [History] sertraline [Zoloft] 100 mg PO BID #60 tab 11/08/17 [Rx] Prescriptions: sertraline [Zoloft] Alexis Celaya Home medications estradiol 1 mg PO DAILY 01/19/16 levothyroxine [Levoxyl] 1 tab PO DAILYAC 01/19/16 medroxyprogesterone 5 mg PO DAILY 01/19/16 esomeprazole magnesium [Nexium] 1 cap PO DAILY 08/08/17 - Discharge Disposition Discharge Disposition: PATIENT IS TO FOLLOW UP IN OUR OFFICE IN ONE WEEK.
== END 2017-11-08 12:45 | disposition home or self-care (01) ==
LOC: MED/SURG
PROVIDERS: ADMIT Internal Medicine; ATTEND Internal Medicine
DX: R53.1 Weakness; I25.10 Atherosclerotic heart disease of native coronary artery without angina pectoris; K64.8 Other hemorrhoids; E11.65 Type 2 diabetes mellitus with hyperglycemia; R10.84 Generalized abdominal pain; F41.8 Other specified anxiety disorders; R11.2 Nausea with vomiting, unspecified; R63.4 Abnormal weight loss; K59.09 Other constipation; I10 Essential (primary) hypertension
CPT/HCPCS: 36415; 80053; 81001; 83735; 84132; 85025; 87086; A4216; A4222; A4217; G0378; J2704; J3480; J3490; J7030

== ENCOUNTER 2019-04-13 13:53 | Observation (INO) ==
[2019-04-13] MEDS ORDERED: ZOFRAN INJ 4 MG VIAL IVP PRN (16:18)
[2019-04-13] MEDS ORDERED: NS 1000 ML 1,000 ML ONE (16:19)
[2019-04-13] MEDS: NS 1000 ML 1,000 ML IV SCH ×2 (16:20→16:21)
[2019-04-13 17:41] VITALS: BMI 25.0
[2019-04-13] MEDS: TYLENOL 325 MG TAB PO PRN (20:28)
[2019-04-13 20:40] LABS: CRYPTOSPORIDIUM PARVUM ANTIGEN NEGATIVE (NEGATIVE); GIARDIA LAMBLIA ANTIGEN NEGATIVE (NEGATIVE)
[2019-04-13 21:35] LABS: BASOPHILS % (AUTO) 0.6 % (0.2-1.0); EOSINOPHILS # (AUTO) 0.1 x10^3/uL (0.0-0.2); EOSINOPHILS % (AUTO) 1.1 % (0.9-2.9); HEMATOCRIT 41.3 % (36.0-47.0); HEMOGLOBIN 13.9 g/dL (12.0-16.0); LYMPHOCYTES # (AUTO) 1.4 X10^3/uL (1.3-2.9); LYMPHOCYTES % (AUTO) 20.4 % (21.0-51.0); MEAN CORPUSCULAR HEMOGLOBIN 29.2 pg (27.0-34.0); MEAN CORPUSCULAR HGB CONC 33.7 g/dL (33.0-35.0); MEAN CORPUSCULAR VOLUME 86.5 fL (80.0-100.0); MEAN PLATELET VOLUME 7.7 fL (7.4-11.0); MONOCYTES # (AUTO) 0.7 x10^3/uL (0.3-0.8); NEUTROPHILS # (AUTO) 4.6 x10^3/uL (2.2-4.8); NEUTROPHILS % (AUTO) 67.9 % (42.0-75.0); PLATELET COUNT 252 X10^3/uL (150.0-450.0); RED BLOOD COUNT 4.77 X10^6/uL (3.5-5.4); RED CELL DISTRIBUTION WIDTH 13.4 % (11.6-16.5); WHITE BLOOD COUNT 6.8 X10^3/uL (3.6-10.0)
[2019-04-13 21:46] LABS: ALANINE AMINOTRANSFERASE 29 Units/L (12-78); ALBUMIN 3.4 g/dL (3.4-5.0); ALKALINE PHOSPHATASE 104 Units/L (46-116); ASPARTATE AMINO TRANSFERASE 19 Units/L (15-37); BLOOD UREA NITROGEN 10 mg/dL (7-18); CALCIUM 8.6 mg/dL (8.5-10.1); CARBON DIOXIDE 29.7 mmol/L (21-32); CHLORIDE 106 mmol/L (98-107); CREATININE 0.82 mg/dL (0.55-1.02); SODIUM 143 mmol/L (136-145); TOTAL PROTEIN 6.8 g/dL (6.4-8.2); eGFR NON BLACK RACES > 60 (>60)
[2019-04-14] MEDS: NS 1000 ML 1,000 ML IV SCH ×3 (05:51→22:07)
[2019-04-14 06:22] LABS: BASOPHILS % (AUTO) 0.4 % (0.2-1.0); EOSINOPHILS # (AUTO) 0.1 x10^3/uL (0.0-0.2); EOSINOPHILS % (AUTO) 1.5 % (0.9-2.9); HEMATOCRIT 40.9 % (36.0-47.0); HEMOGLOBIN 13.8 g/dL (12.0-16.0); LYMPHOCYTES # (AUTO) 1.6 X10^3/uL (1.3-2.9); LYMPHOCYTES % (AUTO) 25.9 % (21.0-51.0); MEAN CORPUSCULAR HEMOGLOBIN 29.1 pg (27.0-34.0); MEAN CORPUSCULAR HGB CONC 33.7 g/dL (33.0-35.0); MEAN CORPUSCULAR VOLUME 86.3 fL (80.0-100.0); MEAN PLATELET VOLUME 7.7 fL (7.4-11.0); MONOCYTES # (AUTO) 0.5 x10^3/uL (0.3-0.8); MONOCYTES % (AUTO) 8.2 % (0.0-13.0); PLATELET COUNT 235 X10^3/uL (150.0-450.0); RED BLOOD COUNT 4.74 X10^6/uL (3.5-5.4); RED CELL DISTRIBUTION WIDTH 13.5 % (11.6-16.5); WHITE BLOOD COUNT 6.3 X10^3/uL (3.6-10.0)
[2019-04-14 06:32] LABS: ALANINE AMINOTRANSFERASE 28 Units/L (12-78); ALBUMIN 3.4 g/dL (3.4-5.0); ALKALINE PHOSPHATASE 99 Units/L (46-116); ASPARTATE AMINO TRANSFERASE 16 Units/L (15-37); BLOOD UREA NITROGEN 10 mg/dL (7-18); CALCIUM 8.4 mg/dL (8.5-10.1); CARBON DIOXIDE 26.9 mmol/L (21-32); CHLORIDE 107 mmol/L (98-107); SODIUM 143 mmol/L (136-145); TOTAL PROTEIN 6.6 g/dL (6.4-8.2); eGFR NON BLACK RACES > 60 (>60)
--- NOTE | 2019-04-14 07:36 | RAD ---
HISTORYAbdominal painSTUDYACUTE ABDOMEN SERIESCOMPARISONNoneFINDINGSThe heart is within normal limits in size. The martinez are normal. The lung gómez are clear. The abdominal gas pattern is nonspecific and nonobstructive. No pneumoperitoneum is identified. No abnormal masses or abnormal calcifications are identified. The patient is status post cholecystectomy.IMPRESSIONLungs clearUnremarkable abdomenElectronically signed by: DAMARIS PATTON (Apr 14, 2019 07:35:30)
--- NOTE | 2019-04-14 08:32 | DR.UPDATE ---
H&P Update History and Physical Update: History and Physical reviewed and patient examined. Changes noted: Yes with the following: WAS SEEN IN THE OFFICE TODAY WITH REPORTS OF NAUSEA, VOMITING, DIARRHEA, WEAKNESS, AND FATIGUES. SYMPTOMS STARTED ONE WEEK AGO AND HAVE PROGRESSIVELY GOTTEN WORSE. SHE WAS ADMITTED FOR FURTHER EVALUATION AND TREATMENT. ON ADMISSION, WE WILL OBTAIN LABS, UA, STOOL STUDIES, AND ABDOMINAL XRAY. WE WILL START NORMAL SALINE AT 80ML/HR, ZOFRAN 4MG IV Q4H PRN, AND WILL REVIEW HWER HOME MEDICATIONS. OTHERWISE, WE WILL FOLLOW UP WITH AM LABS AND CONTINUE TO MONITOR. H&P Reviewed: Yes Patient was examined?: Yes
[2019-04-14] MEDS ORDERED: TURMERIC 500 MG PO SCH (09:00)
[2019-04-14] MEDS ORDERED: METHYLSULFONYLMETHANE 1000 MG PO SCH (09:00)
[2019-04-14] MEDS ORDERED: NS 1000 ML 1,000 ML IV ONE (09:48)
[2019-04-14] MEDS: LOVAZA PO SCH (11:04)
[2019-04-14] MEDS: SINGULAIR TAB 10 MG PO SCH (11:05)
[2019-04-14] MEDS: PEPCID TAB 20 MG PO SCH (11:05)
[2019-04-14] MEDS: SYNTHROID 25 mcg TAB PO SCH (11:05)
[2019-04-14] MEDS: CIPRO IV 400 MG PREMIX* 400 MG/200 ML IV.SOLN. IV SCH ×2 (11:06→20:39)
[2019-04-14] MEDS: TAB-A-VITE PO SCH (11:06)
[2019-04-14] MEDS: VITAMIN C PO SCH (11:07)
[2019-04-14] MEDS: COLACE CAP 100 MG PO SCH ×2 (11:08→20:42)
[2019-04-14] MEDS: PATIENT'S HOME MEDICATION (Lubiprostone [Amitiza] 24 MCG) PO SCH ×2 (11:08→20:40)
[2019-04-14] MEDS: PEPCID 20 MG IV PREMIX* 20 MG/50 ML BAG IV SCH ×2 (11:08→20:40)
[2019-04-14] MEDS: PROTONIX INJ 40 MG VIAL IVP SCH ×2 (11:08→20:40)
[2019-04-14] MEDS: VITAMIN D3 PO SCH (11:09)
[2019-04-14] MEDS: LEVSIN/MAALOX/LIDOC VISC PO SCH ×4 (11:26→20:41)
[2019-04-14] MEDS: REGLAN TAB 10 MG PO SCH ×2 (11:27→16:44)
[2019-04-14] MEDS: DIFLUCAN 200 MG IV PREMIX* 200 MG/100 ML BAG IV SCH (13:57)
[2019-04-14] MEDS: TYLENOL 325 MG TAB PO PRN (14:17)
[2019-04-14] MEDS ORDERED: CRESTOR TAB 10 MG PO SCH (21:00)
[2019-04-14 21:23] LABS: APPEARANCE,URINE SLIGHTLY HAZY (CLEAR); BILIRUBIN,URINE NEGATIVE (NEGATIVE); BLOOD/HEMOGLOBIN,URINE 1+ (NEGATIVE); COLOR,URINE YELLOW (YELLOW); GLUCOSE, URINE NEGATIVE (NEGATIVE); KETONES,URINE NEGATIVE (NEGATIVE); LEUKOCYTE ESTERASE ,URINE 3+ (NEGATIVE); NITRITES,URINE NEGATIVE (NEGATIVE); PROTEIN,URINE NEGATIVE (NEGATIVE); UROBILINOGEN,URINE NORMAL (NORMAL)
[2019-04-14 21:29] LABS: BACTERIA,URINE TRACE /HPF (NEGATIVE); SQUAMOUS EPITHELIAL CELL,UR FEW /HPF (NEGATIVE)
--- NOTE | 2019-04-14 22:13 | PCM.PROG ---
Progress Note - Progress Note for Day of Date of Exam: 04/14/19 - Subjective Subjective: WAS ADMITTED FOR COMPLAINTS OF NAUSEA, VOMITING, DIARRHEA, AND WEAKNESS. TODAY, SHE IS ALERT AND ORIENTED, LYING IN BED ON MORNING ROUNDS. SHE CONTINUES WITH COMPLAINTS OF WEAKNESS AND DIARRHEA. ON EXAMINATION, HEART IS REGULAR IN RATE AND RHYTHM. BILATERAL LUNGS ARE NOTED WITH DIMINISHED LUNG SOUNDS THROUGHOUT. ABDOMEN IS ROUND, SOFT, AND NOTED WITH DIFFUSE TENDERNESS THROUGHOUT. HER VITALS THIS [place] ARE: 97.9-62-18-97%-128/78. LABS WERE OBTAINED. ABNORMAL LAB VALUES INCLUDE THE FOLLOWING: CALCIUM 8.4. URINALYSIS REVEALED: WBC 3-5, RBC 3-5, LEUKOCYTES 3+, BACTERIA TRACE, OCCULT BLOOD 1+. STOOL IS POSITIVE FOR WHITE CELLS AND CAMPYLOBACTER. AN ABDOMINAL SERIES WAS UNREMARKABLE. SHE WAS STARTED ON NORMAL SALINE AT 80ML/HR. TODAY, WE WILL START CIPRO 400MG IV Q12H, IV PEPCID, IV PROTONIX, IV DIFLUCAN, AND GI COCKTAIL. WE WILL RESUME HER HOME MEDICATIONS. OTHERWISE, WE WILL FOLLOW UP WITH AM LABS AND CONTINUE TO MONITOR. - Past Medical Family Social History Past Med/Fam/Surg Hx: No changes since H&P Allergies: Allergies codeine Allergy (Verified 04/13/19 16:44) linaclotide [From Linzess] Adverse Reaction (Verified 04/13/19 17:31) - Review of Systems ROS: No change since H&P - Vital Signs and I&O's Vital Signs: Temperature 98.3 F Pulse Rate [Right Brachial] 69 Pulse Rate [Left Brachial] 63 Respiratory Rate 20 Blood Pressure [Right Arm] 125/68 Blood Pressure 101/60 O2 Sat by Pulse Oximetry 96 Intake and Output: Intake & Output 04/12/19 04/13/19 04/14/19 04/15/19 11:59 11:59 11:59 11:59 Intake Total 930 / 930 1320 / 1320 Balance 930 / 930 1320 / 1320 - Physical Exam Oriented: Normal Eyes: Normal Ear: Normal Nose: Normal Throat: Normal Respiratory: Generalized, Diminished Cardiovascular: Normal : Normal Auscultation: Bowel Sounds: Normal Palpation: Normal Tenderness: Diffuse, Moderate. negative: Rebound, Guarding, Rigidity Skin: Normal Musculoskeletal: Normal Psychiatric: Normal Mood Description: Calm Affect: Normal Speech Pattern: Clear - Laboratory and Diagnostics Result Diagrams: 04/14/19 05:14 04/14/19 05:14 Labs: 04/13/19 20:00 Stool Stool Culture - Preliminary 04/13/19 20:00 Stool - Final Laboratory WBC 6.3 X10^3/uL (3.6-10.0) 04/14/19 05:14 RBC 4.74 X10^6/uL (3.5-5.4) 04/14/19 05:14 Hgb 13.8 g/dL (12.0-16.0) 04/14/19 05:14 Hct 40.9 % (36.0-47.0) 04/14/19 05:14 MCV 86.3 fL (80.0-100.0) 04/14/19 05:14 MCH 29.1 pg (27.0-34.0) 04/14/19 05:14 MCHC 33.7 g/dL (33.0-35.0) 04/14/19 05:14 RDW 13.5 % (11.6-16.5) 04/14/19 05:14 Plt Count 235 X10^3/uL (150.0-450.0) 04/14/19 05:14 MPV 7.7 fL (7.4-11.0) 04/14/19 05:14 Neut % (Auto) 64.0 % (42.0-75.0) 04/14/19 05:14 Lymph % (Auto) 25.9 % (21.0-51.0) 04/14/19 05:14 [place] % (Auto) 8.2 % (0.0-13.0) 04/14/19 05:14 Eos % (Auto) 1.5 % (0.9-2.9) 04/14/19 05:14 Baso % (Auto) 0.4 % (0.2-1.0) 04/14/19 05:14 Neut # (Auto) 4.0 x10^3/uL (2.2-4.8) 04/14/19 05:14 Lymph # (Auto) 1.6 X10^3/uL (1.3-2.9) 04/14/19 05:14 [place] # (Auto) 0.5 x10^3/uL (0.3-0.8) 04/14/19 05:14 Eos # (Auto) 0.1 x10^3/uL (0.0-0.2) 04/14/19 05:14 Baso # (Auto) 0.0 X10^3/uL (0.0-0.1) 04/14/19 05:14 Absolute Nucleated RBC 0.1 /100WBC 04/14/19 05:14 Sodium 143 mmol/L (136-145) 04/14/19 05:14 Corrected Sodium TNP 04/14/19 05:14 Potassium 3.7 mmol/L (3.5-5.1) 04/14/19 05:14 Chloride 107 mmol/L (98-107) 04/14/19 05:14 Carbon Dioxide 26.9 mmol/L (21-32) 04/14/19 05:14 BUN 10 mg/dL (7-18) 04/14/19 05:14 Creatinine 0.70 mg/dL (0.55-1.02) 04/14/19 05:14 Est GFR (MDRD) Af Amer > 60 (>60) 04/14/19 05:14 Est GFR (MDRD) Non-Af > 60 (>60) 04/14/19 05:14 Glucose 94 mg/dL (65-99) 04/14/19 05:14 Calcium 8.4 mg/dL (8.5-10.1) L 04/14/19 05:14 Corrected Calcium TNP 04/14/19 05:14 Total Bilirubin 0.30 mg/dL (0.2-1.0) 04/14/19 05:14 AST 16 Units/L (15-37) 04/14/19 05:14 ALT 28 Units/L (12-78) 04/14/19 05:14 Alkaline Phosphatase 99 Units/L (46-116) 04/14/19 05:14 Total Protein 6.6 g/dL (6.4-8.2) 04/14/19 05:14 Albumin 3.4 g/dL (3.4-5.0) 04/14/19 05:14 Globulin 3.2 g/dL (2.5-4.5) 04/14/19 05:14 Albumin/Globulin Ratio 1.1 Ratio (1.1-2.1) 04/14/19 05:14 Specimen Type Clean catch urine 04/14/19 21:05 Urine Color Yellow (YELLOW) 04/14/19 21:05 Urine Appearance Slightly hazy (CLEAR) 04/14/19 21:05 Urine pH 6.0 (5.0 - 8.0) 04/14/19 21:05 Ur Specific [place] 1.010 (1.000-1.030) 04/14/19 21:05 Urine Protein Negative (NEGATIVE) 04/14/19 21: Urine Glucose (UA) Negative (NEGATIVE) 04/14/19 21: Urine Ketones Negative (NEGATIVE) 04/14/19 21: Urine Occult Blood 1+ (NEGATIVE) 04/14/19 21: Urine Nitrite Negative (NEGATIVE) 04/14/19 21: Urine Bilirubin Negative (NEGATIVE) 04/14/19 21: Urine Urobilinogen Normal (NORMAL) 04/14/19 21:05 Ur Leukocyte Esterase 3+ (NEGATIVE) 04/14/19 21: Urine RBC 3-5 /HPF (0-3) A 04/14/19 21:05 Urine WBC 3-5 /HPF (0-5) 04/14/19 21:05 Ur Squamous Epith Cells Few /HPF (NEGATIVE) 04/14/19 21:05 Urine Bacteria Trace /HPF (NEGATIVE) 04/14/19 21:05 Ur Culture Indicated? No/not indicated 04/14/19 21:05 Stool Description 15g,brown,unformed 04/13/19 20:00 Stool Description 15g,brown,unformed 04/13/19 20:00 Stl Occult Blood (IFOB) Negative (NEGATIVE) 04/13/19 20:00 Stool for White Cells Positive (NEGATIVE) A 04/13/19 20:00 Stl C. diff Tox B Gene Negative (NEGATIVE) 04/13/19 20:00 Stl C. diff [id number] Negative (NEGATIVE) 04/13/19 20:00 Cryptosporid parvum Ag Negative (NEGATIVE) 04/13/19 20:00 Giardia lamblia Ag Negative (NEGATIVE) 04/13/19 20:00 - Plan (1) Campylobacter diarrhea Status: Acute Plan: IV FLUIDS, IV CIPRO, CONTINUE TO MONITOR (2) Nausea & vomiting Status: Acute Qualifiers: Vomiting type: unspecified Vomiting Intractability: non-intractable Qualified Code(s): R11.2 - Nausea with vomiting, unspecified Plan: ZOFRAN 4MG IV Q4H PRN, CONTINUE TO MONITOR.
[2019-04-15] MEDS: TYLENOL 325 MG TAB PO PRN (01:14)
[2019-04-15] MEDS: NS 1000 ML 1,000 ML IV SCH ×2 (04:45→07:16)
[2019-04-15] MEDS: REGLAN TAB 10 MG PO SCH (05:50)
[2019-04-15 06:09] LABS: BASOPHILS % (AUTO) 0.5 % (0.2-1.0); EOSINOPHILS # (AUTO) 0.1 x10^3/uL (0.0-0.2); EOSINOPHILS % (AUTO) 1.6 % (0.9-2.9); HEMATOCRIT 38.8 % (36.0-47.0); HEMOGLOBIN 13.3 g/dL (12.0-16.0); LYMPHOCYTES # (AUTO) 1.4 X10^3/uL (1.3-2.9); LYMPHOCYTES % (AUTO) 20.8 % (21.0-51.0); MEAN CORPUSCULAR HEMOGLOBIN 29.4 pg (27.0-34.0); MEAN CORPUSCULAR HGB CONC 34.2 g/dL (33.0-35.0); MEAN CORPUSCULAR VOLUME 85.8 fL (80.0-100.0); MEAN PLATELET VOLUME 7.8 fL (7.4-11.0); MONOCYTES # (AUTO) 0.6 x10^3/uL (0.3-0.8); MONOCYTES % (AUTO) 9.4 % (0.0-13.0); NEUTROPHILS # (AUTO) 4.6 x10^3/uL (2.2-4.8); NEUTROPHILS % (AUTO) 67.7 % (42.0-75.0); PLATELET COUNT 232 X10^3/uL (150.0-450.0); RED BLOOD COUNT 4.53 X10^6/uL (3.5-5.4); RED CELL DISTRIBUTION WIDTH 13.6 % (11.6-16.5); WHITE BLOOD COUNT 6.8 X10^3/uL (3.6-10.0)
[2019-04-15 07:01] LABS: ALANINE AMINOTRANSFERASE 23 Units/L (12-78); ALBUMIN 3.1 g/dL (3.4-5.0); ALKALINE PHOSPHATASE 106 Units/L (46-116); ASPARTATE AMINO TRANSFERASE 14 Units/L (15-37); BLOOD UREA NITROGEN 9 mg/dL (7-18); CALCIUM 8.3 mg/dL (8.5-10.1); CARBON DIOXIDE 25.3 mmol/L (21-32); CHLORIDE 109 mmol/L (98-107); COR NA(FOR HYPERGLY) 143 mmol/L (136-145); CREATININE 0.76 mg/dL (0.55-1.02); SODIUM 143 mmol/L (136-145); TOTAL PROTEIN 6.3 g/dL (6.4-8.2); eGFR NON BLACK RACES > 60 (>60)
[2019-04-15] MEDS: PEPCID 20 MG IV PREMIX* 20 MG/50 ML BAG IV SCH (08:30)
[2019-04-15] MEDS: LEVSIN/MAALOX/LIDOC VISC PO SCH (08:51)
[2019-04-15] MEDS: COLACE CAP 100 MG PO SCH (08:51)
[2019-04-15] MEDS: LOVAZA PO SCH (08:52)
[2019-04-15] MEDS: PATIENT'S HOME MEDICATION (Lubiprostone [Amitiza] 24 MCG) PO SCH (08:52)
[2019-04-15] MEDS: VITAMIN D3 PO SCH (08:52)
[2019-04-15] MEDS: VITAMIN C PO SCH (08:53)
[2019-04-15] MEDS: DIFLUCAN 200 MG IV PREMIX* 200 MG/100 ML BAG IV SCH (08:54)
[2019-04-15] MEDS: SINGULAIR TAB 10 MG PO SCH (08:55)
[2019-04-15] MEDS: SYNTHROID 25 mcg TAB PO SCH (08:55)
[2019-04-15] MEDS: PEPCID TAB 20 MG PO SCH (08:55)
[2019-04-15] MEDS: PROTONIX INJ 40 MG VIAL IVP SCH (08:55)
[2019-04-15] MEDS: TAB-A-VITE PO SCH (08:55)
[2019-04-15 09:38] VITALS: BP 126/77
[2019-04-15] MEDS: CIPRO IV 400 MG PREMIX* 400 MG/200 ML IV.SOLN. IV SCH (09:56)
== END 2019-04-15 11:15 | disposition home or self-care (01) ==
LOC: OBS
PROVIDERS: ADMIT Internal Medicine; ATTEND Internal Medicine
CPT/HCPCS: 36415; 74022; 80053; 81001; 82270; 83630; 85025; 87045; 87328; 87329; 87427; 87449; 87493; 87899; 96360; 96361; 97161; A4216; A4222; C9113; S0028; G0378; J0744; J1450; J3490; J7030

== ENCOUNTER 2021-07-03 15:59 | Observation (INO) ==
[2021-07-03] MEDS ORDERED: PHENERGAN INJ 25 MG IM PRN (17:39)
[2021-07-03 19:04] LABS: BASOPHILS % (AUTO) 0.3 % (0.2-1.0); EOSINOPHILS # (AUTO) 0.2 x10^3/uL (0.0-0.2); EOSINOPHILS % (AUTO) 2.4 % (0.9-2.9); HEMATOCRIT 38.7 % (36.0-47.0); HEMOGLOBIN 13.1 g/dL (12.0-16.0); LYMPHOCYTES # (AUTO) 0.6 X10^3/uL (1.3-2.9); LYMPHOCYTES % (AUTO) 7.4 % (21.0-51.0); MEAN CORPUSCULAR HEMOGLOBIN 29.3 pg (27.0-34.0); MEAN CORPUSCULAR HGB CONC 33.8 g/dL (33.0-35.0); MEAN CORPUSCULAR VOLUME 86.8 fL (80.0-100.0); MEAN PLATELET VOLUME 7.6 fL (7.4-11.0); MONOCYTES # (AUTO) 1.1 x10^3/uL (0.3-0.8); MONOCYTES % (AUTO) 14.5 % (0.0-13.0); NEUTROPHILS # (AUTO) 5.7 x10^3/uL (2.2-4.8); NEUTROPHILS % (AUTO) 75.4 % (42.0-75.0); RED BLOOD COUNT 4.46 X10^6/uL (3.5-5.4); RED CELL DISTRIBUTION WIDTH 13.5 % (11.6-16.5); WHITE BLOOD COUNT 7.5 X10^3/uL (3.6-10.0)
[2021-07-03 20:50] LABS: ALANINE AMINOTRANSFERASE 771 Units/L (12-78); ALKALINE PHOSPHATASE 278 Units/L (46-116); AMYLASE 27 Units/L (25-115); ASPARTATE AMINO TRANSFERASE 345 Units/L (15-37); BLOOD UREA NITROGEN 13 mg/dL (7-18); CALCIUM 8.7 mg/dL (8.5-10.1); CARBON DIOXIDE 29.9 mmol/L (21-32); CHLORIDE 104 mmol/L (98-107); COR CA(FOR HYPOALB) 9.5 mg/dL (8.5-10.1); CREATINE KINASE 30 Units/L (26-192); CREATININE 0.79 mg/dL (0.55-1.02); LIPASE 86 Units/L (73-393); SODIUM 138 mmol/L (136-145); TOTAL PROTEIN 6.9 g/dL (6.4-8.2); eGFR NON BLACK RACES > 60 (>60)
[2021-07-03 21:36] LABS: CKMB % 3.3 % (<4)
[2021-07-03 21:37] LABS: CREATINE KINASE MB < 1.0 ng/mL (0-4.0)
[2021-07-03] MEDS: NS 1,000 ML IV 1,000 ML IV SCH (22:59)
[2021-07-03] MEDS: PEPCID 20 MG VIAL 20 MG in NS 50 ML IV 50 ML IV SCH ×2 (22:59→23:00)
[2021-07-03] MEDS: PROTONIX INJ 40 MG VIAL IVP SCH ×2 (23:00→23:01)
[2021-07-03 23:01] LABS: BILIRUBIN,URINE NEGATIVE (NEGATIVE); BLOOD/HEMOGLOBIN,URINE NEGATIVE (NEGATIVE); GLUCOSE, URINE NEGATIVE (NEGATIVE); KETONES,URINE NEGATIVE (NEGATIVE); LEUKOCYTE ESTERASE ,URINE NEGATIVE (NEGATIVE); NITRITES,URINE NEGATIVE (NEGATIVE); PROTEIN,URINE 2+ (NEGATIVE); UROBILINOGEN,URINE NORMAL (NORMAL)
[2021-07-03 23:03] LABS: APPEARANCE,URINE CLEAR (CLEAR); COLOR,URINE YELLOW (YELLOW)
[2021-07-03 23:30] LABS: BACTERIA,URINE TRACE /HPF (NEGATIVE); RBC,URINE 0-2 /HPF (0-3); SQUAMOUS EPITHELIAL CELL,UR FEW /HPF (NEGATIVE)
[2021-07-03 23:38] LABS: CRYPTOSPORIDIUM PARVUM ANTIGEN NEGATIVE (NEGATIVE); GIARDIA LAMBLIA ANTIGEN NEGATIVE (NEGATIVE)
[2021-07-03 23:47] LABS: CREATINE KINASE 98 Units/L (26-192); CREATINE KINASE MB < 1.0 ng/mL (0-4.0)
--- NOTE | 2021-07-04 01:14 | RAD ---
PROCEDURE: Acute Abdomen Series .HISTORY: Nausea, vomiting, diarrhea.TECHNIQUE: AP supine and upright abdomen with AP chest x-ray views .COMPARISON: 04/14/2019.TECHNICAL QUALITY: Satisfactory .FINDINGS:Chest x-ray shows clear lungs and normal size heart.No pneumoperitoneum.Mild gas and feces throughout the colon without abnormal distention. No obstruction or ileus.No organomegaly.No abnormal calcifications.Surgical clips right upper quadrant of the abdomen.No acute bony abnormality. Previous vertebroplasty mid thoracic spine.IMPRESSION:1. Nonspecific bowel gas pattern.2. No active cardiopulmonary disease.Electronically signed by: Donny Harvey (Jul 04, 2021 01:14:42)
[2021-07-04] MEDS: TYLENOL 325 MG TAB PO PRN ×3 (05:53→19:27)
[2021-07-04 06:22] LABS: BASOPHILS % (AUTO) 0.7 % (0.2-1.0); EOSINOPHILS # (AUTO) 0.2 x10^3/uL (0.0-0.2); EOSINOPHILS % (AUTO) 3.1 % (0.9-2.9); HEMATOCRIT 31.9 % (36.0-47.0); LYMPHOCYTES # (AUTO) 0.5 X10^3/uL (1.3-2.9); LYMPHOCYTES % (AUTO) 9.1 % (21.0-51.0); MEAN CORPUSCULAR HEMOGLOBIN 29.4 pg (27.0-34.0); MEAN CORPUSCULAR HGB CONC 34.4 g/dL (33.0-35.0); MEAN CORPUSCULAR VOLUME 85.6 fL (80.0-100.0); MEAN PLATELET VOLUME 7.7 fL (7.4-11.0); MONOCYTES # (AUTO) 0.8 x10^3/uL (0.3-0.8); MONOCYTES % (AUTO) 12.8 % (0.0-13.0); NEUTROPHILS # (AUTO) 4.4 x10^3/uL (2.2-4.8); NEUTROPHILS % (AUTO) 74.3 % (42.0-75.0); RED BLOOD COUNT 3.72 X10^6/uL (3.5-5.4); RED CELL DISTRIBUTION WIDTH 13.2 % (11.6-16.5)
[2021-07-04 06:46] LABS: ALANINE AMINOTRANSFERASE 560 Units/L (12-78); ALBUMIN 2.6 g/dL (3.4-5.0); ALKALINE PHOSPHATASE 238 Units/L (46-116); ASPARTATE AMINO TRANSFERASE 196 Units/L (15-37); BLOOD UREA NITROGEN 14 mg/dL (7-18); CALCIUM 8.1 mg/dL (8.5-10.1); CARBON DIOXIDE 26.9 mmol/L (21-32); CHLORIDE 104 mmol/L (98-107); CKMB % 4.4 % (<4); COR CA(FOR HYPOALB) 9.2 mg/dL (8.5-10.1); CREATINE KINASE 23 Units/L (26-192); CREATINE KINASE MB < 1.0 ng/mL (0-4.0); CREATININE 0.77 mg/dL (0.55-1.02); SODIUM 138 mmol/L (136-145); TOTAL PROTEIN 5.9 g/dL (6.4-8.2); eGFR NON BLACK RACES > 60 (>60)
[2021-07-04] MEDS: PROTONIX INJ 40 MG VIAL IVP SCH ×2 (08:43→20:38)
[2021-07-04] MEDS: PEPCID 20 MG VIAL 20 MG in NS 50 ML IV 50 ML IV SCH ×2 (08:44→20:38)
[2021-07-04] MEDS: NS 1,000 ML IV 1,000 ML IV SCH ×2 (12:10→19:45)
[2021-07-04] MEDS ORDERED: NORCO 5/325 MG TAB PO PRN (14:11)
[2021-07-04] MEDS ORDERED: ANTIVERT TAB 25 MG PO PRN (14:11)
[2021-07-04] MEDS ORDERED: ZOFRAN INJ 4 MG VIAL IVP PRN (14:13)
--- NOTE | 2021-07-04 15:12 | CT ---
CT abdomen and pelvis with contrastIndication: Abnormal liver enzymes. Fever, nausea and vomitingTECHNIQUEHelical images through the abdomen and pelvis after IV and oral contrast per protocol. Coronal and sagittal reformats provided.COMPARISONNo recent similar prior currently availableFINDINGSLimited images through the lower chest demonstrate calcification in the right lower lobe. This likely reflects embolized cement from prior vertebroplasty.Review of bone windows demonstrates spine DJD without destructive osseous lesion. Vertebroplasty change and vertebral body fracture noted at T7. Lower lumbar spine facet arthropathy noted.Abdomen: Gallbladder is absent. Mild biliary dilatation is probably due to post cholecystectomy change.Adrenal glands, pancreas and spleen are normal. Stomach and small bowel show no acute abnormality. There is no acute colonic abnormality identified. Few vascular calcifications noted. The right kidney is normal without hydroureteronephrosis. Left kidney shows a few parapelvic cyst likely, without hydronephrosis or obstructing stone identified.Appendix is normal.Pelvis: Urinary bladder is borderline thick-walled. The rectum is normal. Uterus and adnexa show no acute abnormality.IMPRESSION:1. Borderline thick-walled urinary bladder. Correlate for cystitis.2. No other acute abnormality with vertebroplasty change noted.Electronically signed by: IAM REA (Jul 04, 2021 15:11:20)
--- NOTE | 2021-07-04 16:01 | DR.H&P ---
H&P - History & Physical for Day of: H&P Date: 07/03/21 - Chief Complaint Chief Complaint: NAUSEA, VOMITING, DIARRHEA, ABDOMINAL PAIN - History of Present Illness History of Present Illness: IS A 61 YEAR OLD WHITE FEMALE. SHE PRESENT ED TO THE OFFICE WITH COMPLAINTS OF PERSISTENT NAUSEA, VOMITING, AND DIARRHEA X 3 DAYS. SHE REPORTS DECREASED ORAL INTAKE DUE TO PERSISTENT NAUSEA AND VOMITING. HE ALSO ADMITS TO FEVER THAT STARTED ONE DAY PRIOR. SHE HAS TAKEN ZOFRAN AT HOME WITHOUT IMPROVEMENT IN SYMPTOMS. SHE HAD RECENT SURGERY TO THE LEFT LOWER LEG BY ON 06/11/21. INJURY WAS DUE TO FALL. SHE IS CURRENTLY IN A POST-OP BOOT. SMITA WERE RECENTLY REMOVED. DRESSINGS TO LATERAL AND MEDIAL ASPECT OF LOWER EXTREMITY ARE DRY AND INTACT. HOME HEALTH HAS BEEN CHANGING DRESSINGS WEEKLY. NON-PITTING EDEMA IS NOTED TO LEFT LOWER EXTREMITY. SHE IS NOTED TO HAVE INCREASED BOWEL SOUNDS AND DIFFUSE TENDERNESS TO ABDOMEN. DECISION WAS MADE TO ADMIT PATIENT FOR FURTHER EVALUATION AND TREATMENT. ON ARRIVAL, VITALS WERE 97.9-88-20-98%-101/57. LABS WERE OBTAINED. WBC 7.5, HGB 13.1, HCT 38.7, SODIUM 138, POTASSIUM 4.1, BUN 13, CREATININE 0.79, GLUCOSE 108, CALCIUM 8.7, AST 345, ALT 771, ALK PHOS 278, ALBUMIN 3.0. CARDIAC ENZYMES WITHIN NORMAL LIMITS. URINALYSIS REVEALED: WBC 0-2, RBC 0-2, BACTERIA TRACE, LEUKOCYTES NEGATIVE. STOOL STUDIES COLLECTED. STOOLS NEGATIVE FOR OCCULT BLOOD, WHITE CELLS, C.DIFF, H.PYLORI, AND OVA/PARASITES. COVID-19 NEGATIVE. STOOL, URINE, AND BLOOD CULTURES WERE SET UP. AN ABDOMINAL SERIES WAS OBTAINED AND REVEALED: 1. Nonspecific bowel gas pattern. 2. No active cardiopulmonary disease. EKG OBTAINED AND REVEALED: SINUS RHYTHM WITH HR 83. SHE WAS STARTED ON NORMAL SALINE AT 80 ML/HR, PEPCID 20MG IV BID, PROTONIX 40MG IV BID, PHENERGAN 12.5MG IM Q6H PRN, ZOFRAN 4MG IV Q4H PRN. WE WILL REVIEW HER HOME MEDICATIONS AND RESUME APPROPRIATE. WE WILL OBTAIN AN ABDOMEN/PELVIS CT WITH CONTRAST DUE TO ABNORMAL LIVER ENZYMES AND PERSISTENT N/V/D. OTHERWISE, WE PLAN TO FOLLOW-UP WITH AM LABS AND CONTINUE TO MONITOR. TIME SPENT ON CLINICAL ASSESSMENT, REVIEWING LABS AND IMAGING, DECISION MAKING, AND DOCUMENTATION GREATER THAN 75 MINUTES. - Past Medical History Past Medical History: Anxiety, Depression, Dyslipidemia, GERD, Hypothyroidism Additional Medical History: IBS - Past Surgical History Surgical History: Cholecystectomy, Ortho Surgery Additional Surgical History: LEFT FOOT SURGERY, LEFT SHOULDER SURGERY - Family History Family Medical History: Diabetes Mellitus, Cancer, Coronary Artery Disease, Heart Failure, Sudden Cardiac , Hypertension - Social History Does patient currently use any type of tobacco product: No Have you used tobacco products in the last 12 months: No Type of Tobacco Use: None Does any household member use tobacco: No Alcohol Use: None Drug Use: None - Medications Home Medications: codeine Allergy (Verified 04/13/19 16:44) morphine Allergy (Verified 10/29/19 07:22) linaclotide [From Linzess] Adverse Reaction (Verified 04/13/19 17:31) CONTINUE taking the following medications cetirizine 10 mg PO HS 07/03/21 [History] esomeprazole magnesium 40 mg PO BID 07/03/21 [History] estradiol 1 mg PO DAILY 07/03/21 [History] famotidine 20 mg PO DAILY 07/03/21 [History] gabapentin 100 mg PO BID 07/03/21 [History] hydrocodone-acetaminophen 1 tab PO DAILY PRN 07/03/21 [History] ibuprofen [IBU] 400 mg PO TID 07/03/21 [History] levocarnitine tartrate [L-Carnitine] 500 mg PO DAILY 07/03/21 [History] levothyroxine 25 mcg PO QAM 07/03/21 [History] meclizine 25 mg PO TID PRN 07/03/21 [History] medroxyprogesterone 5 mg PO DAILY 07/03/21 [History] meloxicam 15 mg PO DAILY 07/03/21 [History] methocarbamol 750 mg PO TID PRN 07/03/21 [History] mirabegron [Myrbetriq] 50 mg PO DAILY 07/03/21 [History] montelukast 10 mg PO HS 07/03/21 [History] ondansetron HCl 8 mg PO Q8H PRN 07/03/21 [History] rosuvastatin 5 mg PO HS 07/03/21 [History] sertraline 100 mg PO DAILY 07/03/21 [History] tramadol-acetaminophen 2 tab PO Q8H PRN 07/03/21 [History] trazodone 50 mg PO HS 07/03/21 [History] - Review of Systems Constitutional: Weakness, Other (DECREASED ORAL INTAKE ) Eyes: No Symptoms Reported ENT: No Symptoms Reported Respiratory: No Symptoms Reported Cardiovascular: No Symptoms Reported Gastrointestinal: Nausea, Vomiting, Diarrhea Genitourinary: No Symptoms Reported Musculoskeletal: Foot Pain (LEFT FOOT ) Skin: Wound (LEFT FOOT SURGICAL WOUND ) Neurological: Weakness - Physical Exam Vital Signs: Temperature 98.5 F Pulse Rate [Right Brachial] 94 Pulse Rate [Bilateral Radial] 101 Respiratory Rate 20 Blood Pressure [Right Arm] 130/63 Blood Pressure 122/63 O2 Sat by Pulse Oximetry 96 Oriented: Person, Place Eyes: Normal Ear: Normal, Left Throat: Normal Respiratory: Diminished Throughout Cardiovascular: Normal : Normal Auscultation: Bowel Sounds: Normal Palpation: Normal Tenderness: Normal Skin: Decreased Turgur, Tender (LEFT FOOT ), Wound Musculoskeletal: Left, Foot, Swelling, Tender Psychiatric: Normal Mood Description: Calm Affect: Normal Speech Pattern: Clear - Assessment/Plan (1) Abdominal pain Qualifiers: Abdominal location: generalized Qualified Code(s): R10.84 - Generalized abdominal pain Status: Acute Plan: ADMIT, OBTAIN ABDOMEN/PELVIS CT WITH CONTRAST, NORMAL SALINE AT 80 ML/HR, PEPCID 20MG IV BID, PROTONIX 40MG IV BID, PHENERGAN 12.5MG IM Q6H PRN, ZOFRAN 4MG IV Q4H PRN. WE WILL REVIEW HER HOME MEDICATIONS AND RESUME APPROPRIATE. (2) Dehydration Status: Acute (3) Nausea & vomiting Qualifiers: Vomiting type: unspecified Qualified Code(s): R11.2 - Nausea with vomiting, unspecified Status: Acute (4) Diarrhea Qualifiers: Diarrhea type: unspecified type Qualified Code(s): R19.7 - Diarrhea, unspecified Status: Acute (5) Elevated liver enzymes Status: Acute - Allergies Allergies/Adverse Reactions: Allergies Allergy/AdvReac Type Severity Reaction Status Date / Time codeine Allergy Verified 04/13/19 16:44 morphine Allergy Verified 10/29/19 07:22 linaclotide [From Linzess] AdvReac Verified 04/13/19 17:31
[2021-07-04] MEDS: NEURONTIN CAP 100 MG PO SCH ×2 (20:37→20:39)
[2021-07-04] MEDS: LEVOCARNITINE TARTRATE 500 MG PO SCH (20:37)
[2021-07-04] MEDS: ZyrTEC TAB 10 MG PO SCH (20:38)
[2021-07-04] MEDS: SINGULAIR TAB 10 MG PO SCH (20:38)
[2021-07-04] MEDS: ZOLOFT PO SCH (20:39)
[2021-07-04] MEDS: DESYREL PO SCH (20:39)
[2021-07-04] MEDS: ESTRACE PO SCH (20:39)
[2021-07-05] MEDS: NS 1,000 ML IV 1,000 ML IV SCH ×3 (01:21→16:33)
[2021-07-05 05:30] LABS: ALANINE AMINOTRANSFERASE 421 Units/L (12-78); ALBUMIN 2.4 g/dL (3.4-5.0); ALKALINE PHOSPHATASE 238 Units/L (46-116); ASPARTATE AMINO TRANSFERASE 112 Units/L (15-37); BLOOD UREA NITROGEN 9 mg/dL (7-18); CALCIUM 7.6 mg/dL (8.5-10.1); CARBON DIOXIDE 26.4 mmol/L (21-32); CHLORIDE 106 mmol/L (98-107); COR CA(FOR HYPOALB) 8.9 mg/dL (8.5-10.1); CREATININE 0.72 mg/dL (0.55-1.02); SODIUM 139 mmol/L (136-145); TOTAL PROTEIN 5.4 g/dL (6.4-8.2); eGFR NON BLACK RACES > 60 (>60)
[2021-07-05] MEDS ORDERED: ROBITUSSIN DM PO PRN (05:35)
[2021-07-05 05:51] LABS: BASOPHILS # (AUTO) 0.1 X10^3/uL (0.0-0.1); BASOPHILS % (AUTO) 0.8 % (0.2-1.0); EOSINOPHILS # (AUTO) 0.2 x10^3/uL (0.0-0.2); EOSINOPHILS % (AUTO) 3.4 % (0.9-2.9); HEMATOCRIT 33.1 % (36.0-47.0); HEMOGLOBIN 11.2 g/dL (12.0-16.0); LYMPHOCYTES # (AUTO) 0.5 X10^3/uL (1.3-2.9); LYMPHOCYTES % (AUTO) 7.8 % (21.0-51.0); MEAN CORPUSCULAR HEMOGLOBIN 29.4 pg (27.0-34.0); MEAN CORPUSCULAR HGB CONC 33.8 g/dL (33.0-35.0); MEAN PLATELET VOLUME 8.3 fL (7.4-11.0); MONOCYTES # (AUTO) 0.8 x10^3/uL (0.3-0.8); MONOCYTES % (AUTO) 11.4 % (0.0-13.0); NEUTROPHILS # (AUTO) 5.2 x10^3/uL (2.2-4.8); NEUTROPHILS % (AUTO) 76.6 % (42.0-75.0); WHITE BLOOD COUNT 6.8 X10^3/uL (3.6-10.0)
[2021-07-05 06:00] LABS: BAND NEUTROPHILS % 3 % (0-10)
[2021-07-05 06:01] LABS: PLATELET MORPHOLOGY COMMENT NORMAL (NORMAL)
[2021-07-05] MEDS ORDERED: ZOLOFT ONE (07:06)
[2021-07-05] MEDS: TYLENOL 325 MG TAB PO PRN (08:07)
[2021-07-05] MEDS: ESTRACE PO SCH (08:08)
[2021-07-05] MEDS: PROTONIX INJ 40 MG VIAL IVP SCH ×2 (08:08→21:31)
[2021-07-05] MEDS: ZOLOFT PO SCH (08:08)
[2021-07-05] MEDS: PEPCID 20 MG VIAL 20 MG in NS 50 ML IV 50 ML IV SCH ×2 (08:09→21:30)
[2021-07-05] MEDS: NEURONTIN CAP 100 MG PO SCH ×2 (08:13→21:28)
[2021-07-05] MEDS ORDERED: NORCO 5/325 MG TAB PO PRN (09:32)
--- NOTE | 2021-07-05 09:41 | PCM.PROG ---
Progress Note - Progress Note for Day of Date of Exam: 07/05/21 - Subjective Subjective: WAS ADMITTED FOR TREATMENT OF ABDOMINAL PAIN, DEHYDRATION, ELEVATED LIVER ENZYMES, AND INTRACTABLE NAUSEA AND VOMITING. TODAY, SHE IS ALERT AND ORIENTED, LYING IN BED ON MORNING ROUNDS. SHE CONTINUES WITH COMPLAINTS OF NAUSEA, DIARRHEA, AND ABDOMINAL CRAMPING. SHE ALSO REPORTS PAIN TO LEFT FOOT. SHE DID HAVE RECENT SURGERY TO THE LEFT FOOT AND IS CURRENTLY WEARING A BOOT. ON EXAMINATION, HEART IS REGULAR IN RATE AND RHYTHM. BILATERAL LUNGS NOTED WITH DIMINISHED LUNG SOUNDS THROUGHOUT. ABDOMEN IS ROUND, SOFT, AND NOTED WITH DIFFUSE TENDERNESS TO PALPATION. NORMAL BOWEL SOUNDS NOTED IN ALL QUADRANTS. NO SIGNS OR SX INFECTION NOTED TO LEFT FOOT SURGICAL WOUND. DRESSING IS DRY AND INTACT. HER VITALS THIS MORNING ARE: 98.2-91-19-94%RA-112/53. LABS WERE OBTAINED. ABNORMAL LAB VALUES INCLUDE THE FOLLOWING: HGB 11.2, HCT 33.1, CALCIUM 7.6, AST 112, ALT 421, ALK PHOS 238, TOTAL PROTEIN 5.4, ALBUMIN 2.4. STOOL, URINE, AND BLOOD CULTURES ARE PENDING. HEPATITIS PANEL IS ALSO PENDING. AN ABDOMEN/PELVIS CT WITH CONTRAST WAS OBTAINED YESTERDAY AND REVEALED: 1. Borderline thick-walled urinary bladder. Correlate for cystitis. 2. No other acute abnormality with vertebroplasty change noted. SHE IS CURRENTLY RECEIVING NORMAL SALINE AT 80 ML/HR, PEPCID 20MG IV BID, PROTONIX 40MG IV BID, PHENERGAN 12.5MG IM Q6H PRN, ZOFRAN 4MG IV Q4H PRN. HER HOME MEDICATIONS WITH THE EXCEPTION OF CRESTOR WERE RESUMED. WE WILL CONTINUE WITH CURRENT PLAN OF CARE TODAY AND ADD ROCEPHIN 1G IV DAILY FOR POSSIBLE CYSTITIS. OTHERWISE, WE PLAN TO FOLLOW UP WITH AM LABS AND CONTINUE TO [facility]. TIME SPENT ON CLINICAL ASSESSMENT, REVIEWING LABS AND IMAGING, DECISION MAKING, AND DOCUMENTATION GREATER THAN 45 MINUTES. - Past Medical Family Social History Past Med/Fam/Surg Hx: No changes since H&P Allergies: Allergies codeine Allergy (Verified 04/13/19 16:44) morphine Allergy (Verified 10/29/19 07:22) linaclotide [From Linzess] Adverse Reaction (Verified 04/13/19 17:31) - Review of Systems ROS: No change since H&P - Vital Signs and I&O's Vital Signs: Temperature 98.2 F Pulse Rate [Right Brachial] 91 Pulse Rate [Bilateral Radial] 101 Respiratory Rate 20 Blood Pressure [Right Arm] 112/53 Blood Pressure 122/63 O2 Sat by Pulse Oximetry 93 Intake and Output: Intake & Output 07/02/21 07/03/21 07/04/21 07/05/21 11:59 11:59 11:59 11:59 Intake Total 935 / 935 1330 / 1330 Output Total 222 / 222 Balance 713 / 713 1330 / 1330 - Physical Exam Oriented: Person, Place Eyes: Normal Ear: Normal, Left Throat: Normal Cardiovascular: Normal : Normal Auscultation: Bowel Sounds: Normal Tenderness: Normal Skin: Decreased Turgur, Tender (LEFT FOOT ), Wound (LEFT FOOT SURGICAL WOUND ) Musculoskeletal: Left, Foot, Swelling, Tender Psychiatric: Normal Mood Description: Calm Affect: Normal Speech Pattern: Clear, Appropriate - Laboratory and Diagnostics Result Diagrams: 07/05/21 05:00 07/05/21 05:00 Labs: 07/03/21 22:38 Stool - Final Laboratory WBC 6.8 X10^3/uL (3.6-10.0) 07/05/21 05:00 RBC 3.80 X10^6/uL (3.5-5.4) 07/05/21 05:00 Hgb 11.2 g/dL (12.0-16.0) L 07/05/21 05:00 Hct 33.1 % (36.0-47.0) L 07/05/21 05:00 MCV 87.0 fL (80.0-100.0) 07/05/21 05:00 MCH 29.4 pg (27.0-34.0) 07/05/21 05:00 MCHC 33.8 g/dL (33.0-35.0) 07/05/21 05:00 RDW 14.0 % (11.6-16.5) 07/05/21 05:00 Plt Count 150 X10^3/uL (150.0-450.0) 07/05/21 05:00 Plt Count Comment Adequate (ADEQUATE) 07/05/21 05:00 MPV 8.3 fL (7.4-11.0) 07/05/21 05:00 Neut % (Auto) 76.6 % (42.0-75.0) H 07/05/21 05:00 Lymph % (Auto) 7.8 % (21.0-51.0) L 07/05/21 05:00 [place] % (Auto) 11.4 % (0.0-13.0) 07/05/21 05:00 Eos % (Auto) 3.4 % (0.9-2.9) H 07/05/21 05:00 Baso % (Auto) 0.8 % (0.2-1.0) 07/05/21 05:00 Neut # (Auto) 5.2 x10^3/uL (2.2-4.8) H 07/05/21 05:00 Lymph # (Auto) 0.5 X10^3/uL (1.3-2.9) L 07/05/21 05:00 [place] # (Auto) 0.8 x10^3/uL (0.3-0.8) 07/05/21 05:00 Eos # (Auto) 0.2 x10^3/uL (0.0-0.2) 07/05/21 05:00 Baso # (Auto) 0.1 X10^3/uL (0.0-0.1) 07/05/21 05:00 Absolute Nucleated RBC 0.5 /100WBC 07/05/21 05:00 Total Counted 100 07/05/21 05:00 Neutrophils % (Manual) 69 % (39-76) 07/05/21 05:00 Band Neutrophils % 3 % (0-10) 07/05/21 05:00 Lymphocytes % (Manual) 11 % (13-43) L 07/05/21 05:00 Monocytes % (Manual) 12 % (4-9) H 07/05/21 05:00 Eosinophils % (Manual) 5 % (0-6) 07/05/21 05:00 Plt Clumps, EDTA Rare 07/05/21 05:00 Plt Morphology Comment Normal (NORMAL) 07/05/21 05:00 RBC Morphology Normal (NORMAL) 07/05/21 05:00 Sodium 139 mmol/L (136-145) 07/05/21 05:00 Corrected Sodium TNP 07/05/21 05:00 Potassium 3.7 mmol/L (3.5-5.1) 07/05/21 05:00 Chloride 106 mmol/L (98-107) 07/05/21 05:00 Carbon Dioxide 26.4 mmol/L (21-32) 07/05/21 05:00 BUN 9 mg/dL (7-18) 07/05/21 05:00 Creatinine 0.72 mg/dL (0.55-1.02) 07/05/21 05:00 Est GFR (MDRD) Af Amer > 60 (>60) 07/05/21 05:00 Est GFR (MDRD) Non-Af > 60 (>60) 07/05/21 05:00 Glucose 93 mg/dL (65-99) 07/05/21 05:00 Calcium 7.6 mg/dL (8.5-10.1) L 07/05/21 05:00 Corrected Calcium 8.9 mg/dL (8.5-10.1) 07/05/21 05:00 Total Bilirubin 0.40 mg/dL (0.2-1.0) 07/05/21 05:00 AST 112 Units/L (15-37) H 07/05/21 05:00 ALT 421 Units/L (12-78) H 07/05/21 05:00 Alkaline Phosphatase 238 Units/L (46-116) H 07/05/21 05:00 Creatine Kinase 23 Units/L (26-192) L 07/04/21 05:42 CK-MB (CK-2) < 1.0 ng/mL (0-4.0) 07/04/21 05:42 CK/CKMB % Calc 4.4 % (<4) 07/04/21 05:42 Troponin I High Sens 5.8 ng/L (4.0-60.0) 07/04/21 05:42 Total Protein 5.4 g/dL (6.4-8.2) L 07/05/21 05:00 Albumin 2.4 g/dL (3.4-5.0) L 07/05/21 05:00 Globulin 3.0 g/dL (2.5-4.5) 07/05/21 05:00 Albumin/Globulin Ratio 0.8 Ratio (1.1-2.1) L 07/05/21 05:00 Amylase 27 Units/L (25-115) 07/03/21 18:36 Lipase 86 Units/L (73-393) 07/03/21 18:36 Specimen Type Clean catch urine 07/03/21 22:38 Urine Color Yellow (YELLOW) 07/03/21 22:38 Urine Appearance Clear (CLEAR) 07/03/21 22:38 Urine pH 6.0 (5.0 - 8.0) 07/03/21 22:38 Ur Specific [place] 1.015 (1.000-1.030) 07/03/21 22:38 Urine Protein 2+ (NEGATIVE) 07/03/21 22:38 Urine Glucose (UA) Negative (NEGATIVE) 07/03/21 22:38 Urine Ketones Negative (NEGATIVE) 07/03/21 22:38 Urine Blood Negative (NEGATIVE) 07/03/21 22:38 Urine Nitrite Negative (NEGATIVE) 07/03/21 22:38 Urine Bilirubin Negative (NEGATIVE) 07/03/21 22:38 Urine Urobilinogen Normal (NORMAL) 07/03/21 22:38 Ur Leukocyte Esterase Negative (NEGATIVE) 07/03/21 22:38 Urine RBC 0-2 /HPF (0-3) 07/03/21 22:38 Urine WBC 0-2 /HPF (0-5) 07/03/21 22:38 Ur Squamous Epith Cells Few /HPF (NEGATIVE) 07/03/21 22:38 Urine Bacteria Trace /HPF (NEGATIVE) 07/03/21 22:38 Urine Mucus Few /HPF (NEGATIVE) 07/03/21 22:38 Ur Culture Indicated? No/not indicated 07/03/21 22:38 Stool Description 50g solid hard brown 07/03/21 22:38 Stool Description 50g solid hard brown 07/03/21 22:38 Stl Occult Blood (IFOB) Negative (NEGATIVE) 07/03/21 22:38 Stool for White Cells Negative (NEGATIVE) 07/03/21 22:38 Stl C. diff Tox B Gene Negative (NEGATIVE) 07/03/21 22:38 Stl C. diff [id number] Presumptive negative (NEGATIVE) 07/03/21 22:38 Stool H. pylori Ag Negative (NEGATIVE) 07/03/21 22:38 Cryptosporid parvum Ag Negative (NEGATIVE) 07/03/21 22:38 Giardia lamblia Ag Negative (NEGATIVE) 07/03/21 22:38 SARS CoV-2 RNA Rapid DEBI Negative (NEGATIVE) 07/03/21 17:47 - Plan (1) Gastroenteritis Status: Acute Plan: ROCEPHIN 1G IV DAILY, NORMAL SALINE AT 80 ML/HR, PEPCID 20MG IV BID, PROTONIX 40MG IV BID, PHENERGAN 12.5MG IM Q6H PRN, ZOFRAN 4MG IV Q4H PRN. HOME MEDS RESUMED (2) Cystitis Status: Acute (3) Abdominal pain Status: Acute Qualifiers: Abdominal location: generalized Qualified Code(s): R10.84 - Generalized abdominal pain (4) Dehydration Status: Acute (5) Nausea & vomiting Status: Acute Qualifiers: Vomiting type: unspecified Qualified Code(s): R11.2 - Nausea with vomiting, unspecified (6) Diarrhea Status: Acute Qualifiers: Diarrhea type: unspecified type Qualified Code(s): R19.7 - Diarrhea, unspecified (7) Elevated liver enzymes Status: Acute
[2021-07-05] MEDS: SYNTHROID 25 mcg TAB PO SCH (10:00)
[2021-07-05] MEDS ORDERED: ROCEPHIN VIAL 1 GRAM 1 G in NS 100 ML IV + SPIKE MINIBAG* 100 ML IV SCH (10:00)
[2021-07-05] MEDS: LEVOCARNITINE TARTRATE 500 MG PO SCH (14:29)
--- NOTE | 2021-07-05 18:02 | RAD ---
EXAM: LEFT FOOT X-RAY SERIESHISTORY: Foot pain. Fall injury.TECHNIQUE: 2 viewsCOMPARISON: None available.FINDINGS:Status post bimalleolar ORIF with metallic hardware in situ. There is diffuse osteopenia. There is no acute bony fracture, or joint subluxation or dislocation seen. No focal bone erosion or sclerosis is seen. No evidence for inflammatory or degenerative arthritis is seen. No soft tissue emphysema, radiodense soft tissue abnormality or suspicious foreign body is seen.IMPRESSION:1. No acute bony fracture, or joint subluxation or dislocation seen.2. Status post bimalleolar ORIF.3. Diffuse osteopenia.4. No soft tissue emphysema, radiodense soft tissue abnormality or suspicious foreign body seen.5. Consider follow-up evaluation with MRI for further assessment if symptoms persist or worsen.Electronically signed by: Solomon Corcoran (Jul 05, 2021 18:02:18)
[2021-07-05] MEDS: SINGULAIR TAB 10 MG PO SCH (21:28)
[2021-07-05] MEDS: DESYREL PO SCH (21:28)
[2021-07-05] MEDS: ZyrTEC TAB 10 MG PO SCH (21:30)
[2021-07-06] MEDS: NS 1,000 ML IV 1,000 ML IV SCH ×3 (03:39→14:09)
[2021-07-06 06:23] LABS: BASOPHILS % (AUTO) 0.4 % (0.2-1.0); EOSINOPHILS # (AUTO) 0.4 x10^3/uL (0.0-0.2); HEMOGLOBIN 11.3 g/dL (12.0-16.0); LYMPHOCYTES % (AUTO) 15.3 % (21.0-51.0); MEAN CORPUSCULAR HEMOGLOBIN 29.6 pg (27.0-34.0); MEAN CORPUSCULAR HGB CONC 34.2 g/dL (33.0-35.0); MEAN CORPUSCULAR VOLUME 86.6 fL (80.0-100.0); MEAN PLATELET VOLUME 8.6 fL (7.4-11.0); MONOCYTES # (AUTO) 0.9 x10^3/uL (0.3-0.8); MONOCYTES % (AUTO) 13.4 % (0.0-13.0); NEUTROPHILS # (AUTO) 4.2 x10^3/uL (2.2-4.8); NEUTROPHILS % (AUTO) 64.9 % (42.0-75.0); RED BLOOD COUNT 3.81 X10^6/uL (3.5-5.4); RED CELL DISTRIBUTION WIDTH 13.7 % (11.6-16.5); WHITE BLOOD COUNT 6.6 X10^3/uL (3.6-10.0)
[2021-07-06 06:35] LABS: ALANINE AMINOTRANSFERASE 310 Units/L (12-78); ALBUMIN 2.2 g/dL (3.4-5.0); ALKALINE PHOSPHATASE 217 Units/L (46-116); ASPARTATE AMINO TRANSFERASE 84 Units/L (15-37); BLOOD UREA NITROGEN 10 mg/dL (7-18); CALCIUM 7.7 mg/dL (8.5-10.1); CARBON DIOXIDE 25.6 mmol/L (21-32); CHLORIDE 110 mmol/L (98-107); COR CA(FOR HYPOALB) 9.1 mg/dL (8.5-10.1); CREATININE 0.61 mg/dL (0.55-1.02); SODIUM 142 mmol/L (136-145); TOTAL PROTEIN 5.3 g/dL (6.4-8.2); eGFR NON BLACK RACES > 60 (>60)
[2021-07-06 07:10] LABS: BAND NEUTROPHILS % 7 % (0-10)
[2021-07-06 07:11] LABS: PLATELET MORPHOLOGY COMMENT NORMAL (NORMAL)
[2021-07-06] MEDS ORDERED: ZOLOFT ONE (08:41)
[2021-07-06] MEDS: ESTRACE PO SCH (08:44)
[2021-07-06] MEDS: ZOLOFT PO SCH (08:45)
[2021-07-06] MEDS: PROTONIX INJ 40 MG VIAL IVP SCH (08:45)
[2021-07-06] MEDS: NEURONTIN CAP 100 MG PO SCH ×2 (08:45→20:18)
[2021-07-06] MEDS: PEPCID 20 MG VIAL 20 MG in NS 50 ML IV 50 ML IV SCH (08:46)
[2021-07-06] MEDS: SYNTHROID 25 mcg TAB PO SCH (08:46)
[2021-07-06] MEDS: LEVOCARNITINE TARTRATE 500 MG PO SCH (08:51)
[2021-07-06] MEDS ORDERED: ROCEPHIN VIAL 1 GRAM 1 G in NS 100 ML IV 100 ML IV SCH (09:00)
[2021-07-06] MEDS: TYLENOL 325 MG TAB PO PRN (10:40)
[2021-07-06] MEDS: PEPCID TAB 20 MG PO SCH (20:18)
[2021-07-06] MEDS: BENADRYL CAP/TAB 25 MG PO PRN (20:18)
[2021-07-06] MEDS: DESYREL PO SCH (20:18)
[2021-07-06] MEDS: ZyrTEC TAB 10 MG PO SCH (20:18)
[2021-07-06] MEDS: SINGULAIR TAB 10 MG PO SCH (20:18)
[2021-07-07] MEDS: BENADRYL CAP/TAB 25 MG PO PRN (04:03)
[2021-07-07 06:15] LABS: BASOPHILS % (AUTO) 0.5 % (0.2-1.0); EOSINOPHILS # (AUTO) 0.4 x10^3/uL (0.0-0.2); EOSINOPHILS % (AUTO) 7.3 % (0.9-2.9); HEMATOCRIT 30.1 % (36.0-47.0); HEMOGLOBIN 10.1 g/dL (12.0-16.0); LYMPHOCYTES % (AUTO) 17.5 % (21.0-51.0); MEAN CORPUSCULAR HEMOGLOBIN 29.1 pg (27.0-34.0); MEAN CORPUSCULAR HGB CONC 33.7 g/dL (33.0-35.0); MEAN CORPUSCULAR VOLUME 86.4 fL (80.0-100.0); MEAN PLATELET VOLUME 8.1 fL (7.4-11.0); MONOCYTES # (AUTO) 0.7 x10^3/uL (0.3-0.8); MONOCYTES % (AUTO) 12.3 % (0.0-13.0); NEUTROPHILS # (AUTO) 3.5 x10^3/uL (2.2-4.8); NEUTROPHILS % (AUTO) 62.4 % (42.0-75.0); RED BLOOD COUNT 3.48 X10^6/uL (3.5-5.4); RED CELL DISTRIBUTION WIDTH 13.6 % (11.6-16.5); WHITE BLOOD COUNT 5.7 X10^3/uL (3.6-10.0)
[2021-07-07 06:27] LABS: ALANINE AMINOTRANSFERASE 246 Units/L (12-78); ALBUMIN 2.1 g/dL (3.4-5.0); ALKALINE PHOSPHATASE 231 Units/L (46-116); ASPARTATE AMINO TRANSFERASE 58 Units/L (15-37); BLOOD UREA NITROGEN 10 mg/dL (7-18); CALCIUM 8.2 mg/dL (8.5-10.1); CARBON DIOXIDE 25.9 mmol/L (21-32); CHLORIDE 108 mmol/L (98-107); COR CA(FOR HYPOALB) 9.7 mg/dL (8.5-10.1); SODIUM 140 mmol/L (136-145); TOTAL PROTEIN 5.5 g/dL (6.4-8.2); eGFR NON BLACK RACES > 60 (>60)
[2021-07-07] MEDS ORDERED: K-DUR TAB 20 MEQ PO PRN (06:47)
[2021-07-07] MEDS ORDERED: POTASSIUM CHLORIDE LIQ 20 MEQ UDC PO PRN (06:47)
[2021-07-07] MEDS ORDERED: K-RIDER 10 MEQ/NS 100 ML 10 MEQ/100 ML BAG IV PRN (06:47)
[2021-07-07] MEDS ORDERED: MICRO K EXTEN CAP 10 MEQ PO PRN (06:47)
[2021-07-07] MEDS ORDERED: POTASSIUM CHL 40 MEQ/NS 0.45% 500 ML IV PRN (06:47)
[2021-07-07] MEDS ORDERED: KLOR-CON PO PRN (06:47)
[2021-07-07] MEDS ORDERED: POTASSIUM CHL 60 MEQ/NS 0.45% 500 ML IV PRN (06:47)
[2021-07-07] MEDS ORDERED: MAGNESIUM SULFATE 1 GRAM/100 mL PREMIX 1 G/100 ML BAG IV PRN (06:47)
[2021-07-07] MEDS ORDERED: ROCEPHIN VIAL 1 GRAM IM SCH (09:00)
[2021-07-07] MEDS ORDERED: PROTONIX TAB 40 MG PO SCH (09:00)
[2021-07-07 09:03] LABS: HEPATITIS B SURFACE ANTIGEN Negative (Negative)
[2021-07-07] MEDS: PEPCID TAB 20 MG PO SCH (10:19)
[2021-07-07] MEDS: NEURONTIN CAP 100 MG PO SCH (10:19)
[2021-07-07] MEDS: ESTRACE PO SCH (10:19)
[2021-07-07] MEDS ORDERED: ZOLOFT ONE (10:19)
[2021-07-07] MEDS: SYNTHROID 25 mcg TAB PO SCH (10:20)
[2021-07-07] MEDS: ZOLOFT PO SCH (10:20)
[2021-07-07] MEDS ORDERED: XYLOCAINE 1 % (PLAIN) ONE (10:23)
[2021-07-07 12:47] VITALS: BP 133/82
--- NOTE | 2021-08-01 10:53 | PCM.PROG ---
Progress Note - Progress Note for Day of Date of Exam: 07/06/21 - Subjective Subjective: WAS ADMITTED FOR TREATMENT OF ABDOMINAL PAIN, CYSTITIS, DEHYDRATION, ELEVATED LIVER ENZYMES, AND INTRACTABLE NAUSEA AND VOMITING. TODAY, SHE IS ALERT AND ORIENTED, LYING IN BED ON MORNING ROUNDS. SHE CONTINUES WITH COMPLAINTS OF NAUSEA, DIARRHEA, AND ABDOMINAL CRAMPING. SHE ALSO REPORTS PAIN TO LEFT FOOT. SHE DID HAVE RECENT SURGERY TO THE LEFT FOOT AND IS CURRENTLY WEARING A BOOT. ON EXAMINATION, HEART IS REGULAR IN RATE AND RHYTHM. BILATERAL LUNGS NOTED WITH DIMINISHED LUNG SOUNDS THROUGHOUT. ABDOMEN IS ROUND, SOFT, AND NOTED WITH DIFFUSE TENDERNESS TO PALPATION. NORMAL BOWEL SOUNDS NOTED IN ALL QUADRANTS. NO SIGNS OR SX INFECTION NOTED TO LEFT FOOT SURGICAL WOUND. DRESSING IS DRY AND INTACT. HER VITALS THIS MORNING ARE: 98.4-91-20-98%-137/71. LABS WERE OBTAINED. ABNORMAL LAB VALUES INCLUDE THE FOLLOWING: HGB 11.3, HCT 33.0, PLT COUNT 91, CHLORIDE 110, CALCIUM 7.7, AST 84, ALT 310, ALK PHOS 217, TOTAL PROTEIN 5.3, ALBUMIN 2.2. STOOL, URINE, AND BLOOD CULTURES ARE PENDING. HEPATITIS PANEL IS ALSO PENDING. A LEFT FOOT XRAY WAS OBTAINED YESTERDAY AND REVEALED: 1. No acute bony fracture, or joint subluxation or dislocation seen. 2. Status post bimalleolar ORIF. 3. Diffuse osteopenia. 4. No soft tissue emphysema, radiodense soft tissue abnormality or suspicious foreign body seen. SHE IS CURRENTLY RECEIVING NORMAL SALINE AT 80 ML/HR, ROCEPHIN 1G IV DAILY, PEPCID 20MG IV BID, PROTONIX 40MG IV BID, PHENERGAN 12.5MG IM Q6H PRN, ZOFRAN 4MG IV Q4H PRN. HER HOME MEDICATIONS WITH THE EXCEPTION OF CRESTOR WERE RESUMED. WE WILL CONTINUE WITH CURRENT PLAN OF CARE TODAY. OTHERWISE, WE PLAN TO FOLLOW UP WITH AM LABS AND CONTINUE TO MONTIOR. TIME SPENT ON CLINICAL ASSESSMENT, REVIEWING LABS AND IMAGING, DECISION MAKING, AND DOCUMENTATION GREATER THAN 45 MINUTES. - Past Medical Family Social History Past Med/Fam/Surg Hx: No changes since H&P Allergies: Allergies codeine Allergy (Verified 04/13/19 16:44) morphine Allergy (Verified 10/29/19 07:22) linaclotide [From Linzess] Adverse Reaction (Verified 04/13/19 17:31) - Review of Systems ROS: No change since H&P - Vital Signs and I&O's Vital Signs: Temperature 98 F Pulse Rate [Right Brachial] 79 Pulse Rate [Bilateral Radial] 101 Respiratory Rate 20 Blood Pressure [Right Arm] 133/82 Blood Pressure 122/63 O2 Sat by Pulse Oximetry 95 - Physical Exam Oriented: Person, Place Eyes: Normal Ear: Normal, Left Throat: Normal Cardiovascular: Normal : Normal Auscultation: Bowel Sounds: Normal Palpation: Normal Tenderness: Normal Skin: Decreased Turgur, Tender (LEFT FOOT ), Wound (LEFT FOOT SURGICAL WOUND ) Musculoskeletal: Left, Foot, Swelling, Tender Psychiatric: Normal Mood Description: Calm Affect: Normal Speech Pattern: Clear, Appropriate - Laboratory and Diagnostics Result Diagrams: 07/07/21 05:20 07/07/21 05:20 Labs: 07/04/21 05:42 Blood Blood Culture - Final 07/04/21 06:00 Blood Blood Culture - Final 07/03/21 22:38 Stool Stool Culture - Final 07/03/21 22:38 Stool - Final 07/03/21 22:38 Urine,Clean Catch Urine Culture - Final Laboratory WBC 5.7 X10^3/uL (3.6-10.0) 07/07/21 05:20 RBC 3.48 X10^6/uL (3.5-5.4) L 07/07/21 05:20 Hgb 10.1 g/dL (12.0-16.0) L 07/07/21 05:20 Hct 30.1 % (36.0-47.0) L 07/07/21 05:20 MCV 86.4 fL (80.0-100.0) 07/07/21 05:20 MCH 29.1 pg (27.0-34.0) 07/07/21 05:20 MCHC 33.7 g/dL (33.0-35.0) 07/07/21 05:20 RDW 13.6 % (11.6-16.5) 07/07/21 05:20 Plt Count 185 X10^3/uL (150.0-450.0) 07/07/21 05:20 Plt Count Comment Decreased (ADEQUATE) A 07/06/21 05:16 MPV 8.1 fL (7.4-11.0) 07/07/21 05:20 Neut % (Auto) 62.4 % (42.0-75.0) 07/07/21 05:20 Lymph % (Auto) 17.5 % (21.0-51.0) L 07/07/21 05:20 [place] % (Auto) 12.3 % (0.0-13.0) 07/07/21 05:20 Eos % (Auto) 7.3 % (0.9-2.9) H 07/07/21 05:20 Baso % (Auto) 0.5 % (0.2-1.0) 07/07/21 05:20 Neut # (Auto) 3.5 x10^3/uL (2.2-4.8) 07/07/21 05:20 Lymph # (Auto) 1.0 X10^3/uL (1.3-2.9) L 07/07/21 05:20 [place] # (Auto) 0.7 x10^3/uL (0.3-0.8) 07/07/21 05:20 Eos # (Auto) 0.4 x10^3/uL (0.0-0.2) H 07/07/21 05:20 Baso # (Auto) 0.0 X10^3/uL (0.0-0.1) 07/07/21 05:20 Absolute Nucleated RBC 0.1 /100WBC 07/07/21 05:20 Total Counted 100 07/06/21 05:16 Neutrophils % (Manual) 53 % (39-76) 07/06/21 05:16 Band Neutrophils % 7 % (0-10) 07/06/21 05:16 Lymphocytes % (Manual) 17 % (13-43) 07/06/21 05:16 Monocytes % (Manual) 14 % (4-9) H 07/06/21 05:16 Eosinophils % (Manual) 9 % (0-6) H 07/06/21 05:16 Plt Clumps, EDTA Few 07/06/21 05:16 Plt Morphology Comment Normal (NORMAL) 07/06/21 05:16 RBC Morphology Normal (NORMAL) 07/06/21 05:16 Sodium 140 mmol/L (136-145) 07/07/21 05:20 Corrected Sodium TNP 07/07/21 05:20 Potassium 3.4 mmol/L (3.5-5.1) L 07/07/21 05:20 Chloride 108 mmol/L (98-107) H 07/07/21 05:20 Carbon Dioxide 25.9 mmol/L (21-32) 07/07/21 05:20 BUN 10 mg/dL (7-18) 07/07/21 05:20 Creatinine 0.60 mg/dL (0.55-1.02) 07/07/21 05:20 Est GFR (MDRD) Af Amer > 60 (>60) 07/07/21 05:20 Est GFR (MDRD) Non-Af > 60 (>60) 07/07/21 05:20 Glucose 95 mg/dL (65-99) 07/07/21 05:20 Calcium 8.2 mg/dL (8.5-10.1) L 07/07/21 05:20 Corrected Calcium 9.7 mg/dL (8.5-10.1) 07/07/21 05:20 Magnesium 1.8 mg/dL (1.7-2.9) 07/07/21 05:20 Total Bilirubin 0.20 mg/dL (0.2-1.0) 07/07/21 05:20 AST 58 Units/L (15-37) H 07/07/21 05:20 ALT 246 Units/L (12-78) H 07/07/21 05:20 Alkaline Phosphatase 231 Units/L (46-116) H 07/07/21 05:20 Creatine Kinase 23 Units/L (26-192) L 07/04/21 05:42 CK-MB (CK-2) < 1.0 ng/mL (0-4.0) 07/04/21 05:42 CK/CKMB % Calc 4.4 % (<4) 07/04/21 05:42 Troponin I High Sens 5.8 ng/L (4.0-60.0) 07/04/21 05:42 Total Protein 5.5 g/dL (6.4-8.2) L 07/07/21 05:20 Albumin 2.1 g/dL (3.4-5.0) L 07/07/21 05:20 Globulin 3.4 g/dL (2.5-4.5) 07/07/21 05:20 Albumin/Globulin Ratio 0.6 Ratio (1.1-2.1) L 07/07/21 05:20 Amylase 27 Units/L (25-115) 07/03/21 18:36 Lipase 86 Units/L (73-393) 07/03/21 18:36 Specimen Type Clean catch urine 07/03/21 22:38 Urine Color Yellow (YELLOW) 07/03/21 22:38 Urine Appearance Clear (CLEAR) 07/03/21 22:38 Urine pH 6.0 (5.0 - 8.0) 07/03/21 22:38 Ur Specific [place] 1.015 (1.000-1.030) 07/03/21 22:38 Urine Protein 2+ (NEGATIVE) 07/03/21 22:38 Urine Glucose (UA) Negative (NEGATIVE) 07/03/21 22:38 Urine Ketones Negative (NEGATIVE) 07/03/21 22:38 Urine Blood Negative (NEGATIVE) 07/03/21 22:38 Urine Nitrite Negative (NEGATIVE) 07/03/21 22:38 Urine Bilirubin Negative (NEGATIVE) 07/03/21 22:38 Urine Urobilinogen Normal (NORMAL) 07/03/21 22:38 Ur Leukocyte Esterase Negative (NEGATIVE) 07/03/21 22:38 Urine RBC 0-2 /HPF (0-3) 07/03/21 22:38 Urine WBC 0-2 /HPF (0-5) 07/03/21 22:38 Ur Squamous Epith Cells Few /HPF (NEGATIVE) 07/03/21 22:38 Urine Bacteria Trace /HPF (NEGATIVE) 07/03/21 22:38 Urine Mucus Few /HPF (NEGATIVE) 07/03/21 22:38 Ur Culture Indicated? No/not indicated 07/03/21 22:38 Stool Description 50g solid hard brown 07/03/21 22:38 Stool Description 50g solid hard brown 07/03/21 22:38 Stl Occult Blood (IFOB) Negative (NEGATIVE) 07/03/21 22:38 Stool for White Cells Negative (NEGATIVE) 07/03/21 22:38 Stl C. diff Tox B Gene Negative (NEGATIVE) 07/03/21 22:38 Stl C. diff [id number] Presumptive negative (NEGATIVE) 07/03/21 22:38 Stool H. pylori Ag Negative (NEGATIVE) 07/03/21 22:38 Cryptosporid parvum Ag Negative (NEGATIVE) 07/03/21 22:38 Giardia lamblia Ag Negative (NEGATIVE) 07/03/21 22:38 Hepatitis A IgM Ab Negative (Negative) 07/04/21 05:42 Hep Bs Antigen Negative (Negative) 07/04/21 05:42 Hep Bs Ag Confirmation TNP 07/04/21 05:42 Hep B Core IgM Ab Negative (Negative) 07/04/21 05:42 Hepatitis C Ab Index 0.06 IV 07/04/21 05:42 Hepatitis C Interp Negative (Negative) 07/04/21 05:42 Hepatitis Interpret See note 07/04/21 05:42 SARS CoV-2 RNA Rapid DEBI Negative (NEGATIVE) 07/03/21 17:47 - Plan (1) Gastroenteritis Status: Acute Plan: ROCEPHIN 1G IV DAILY, NORMAL SALINE AT 80 ML/HR, PEPCID 20MG IV BID, PROTONIX 40MG IV BID, PHENERGAN 12.5MG IM Q6H PRN, ZOFRAN 4MG IV Q4H PRN. HOME MEDS RESUMED (2) Cystitis Status: Acute (3) Abdominal pain Status: Acute Qualifiers: Abdominal location: generalized Qualified Code(s): R10.84 - Generalized abdominal pain (4) Dehydration Status: Acute (5) Nausea & vomiting Status: Acute Qualifiers: Vomiting type: unspecified Qualified Code(s): R11.2 - Nausea with vomiting, unspecified (6) Diarrhea Status: Acute Qualifiers: Diarrhea type: unspecified type Qualified Code(s): R19.7 - Diarrhea, unspecified (7) Elevated liver enzymes Status: Acute
== END 2021-07-07 13:35 | disposition home or self-care (01) ==
LOC: MED/SURG
PROVIDERS: ADMIT Internal Medicine; ATTEND Internal Medicine